=== PATIENT | male | born 1945 | race Caucasian/White ===

== ENCOUNTER 2017-05-19 14:25 | Inpatient (IN) ==
[2017-05-19] MEDS ORDERED: NORMAL SALINE 10 ML SYRINGE FLUSH IVP PRN ×2 (14:54→16:58)
[2017-05-19] MEDS ORDERED: IPRATROPIUM/ALBUTEROL SULFATE 3 ML NEB NEB ONE (14:54)
[2017-05-19 15:38] LABS: VENOUS PH 7.35 (7.32-7.42)
--- NOTE | 2017-05-19 15:41 | DI ---
XR CXR 2VW PA/LAT,05/19/2017 2:54 PM: Clinical History: Dyspnea and shortness of breath. Previous Exam: None at this facility. Findings: PA and lateral views of the chest are obtained, and demonstrate flattening of the hemidiaphragms bila terally. There is some increased density within the lung base not seen on the PA view, but demonstrat ing a positive spine sign on the lateral view. Impression: Airspace disease within the lung bases seen best on the lateral view most likely representing an marco y pneumonia. Correlate clinically. Recommend followup imaging after treatment to document resolution.
[2017-05-19 15:45] LABS: Hematocrit [HCT] 35.9 % (42.0-52.0); Hemoglobin [HGB] 11.6 g/dL (14.0-18.0); MEAN CORPUSCULAR HEMOGLOBIN 31.4 PG (27-31); MEAN CORPUSCULAR VOLUME 97 FL (80-90)
[2017-05-19 15:46] LABS: BASOPHILS % (AUTO) 0.4 % (0-1); EOSINOPHILS % (AUTO) 3.4 % (0-8); MEAN CORPUSCULAR HGB CONC 32.4 g/dL (33-37); MEAN PLATELET VOLUME 7.2 FL (7.4-12.2); MONOCYTES % (AUTO) 5.9 % (5-15); NEUTROPHILS % (AUTO) 74.2 % (50-80)
[2017-05-19 15:47] LABS: BASOPHILS # (AUTO) 0.03 10*3/UL; EOSINOPHILS # (AUTO) 0.24 10*3/UL; LYMPHOCYTES # (AUTO) 1.14 10*3/uL; MONOCYTES # (AUTO) 0.42 10*3/UL (0.3-0.8); NEUTROPHILS # (AUTO) 5.26 10*3/UL; PLATELET MORPHOLOGY COMMENT NORMAL MORPHOLOGY (NORM); RBC MORPHOLOGY COMMENT NORMAL MORPHOLOGY (NORM); WBC MORPHOLOGY COMMENT NORMAL MORPHOLOGY (NORM)
[2017-05-19 15:54] LABS: BLOOD UREA NITROGEN 15 mg/dL (7-22); BUN/CREATININE RATIO 18.75 (6-20); SERUM ALBUMIN 3.7 g/dL (3.5-4.8)
[2017-05-19] MEDS ORDERED: Ertapenem Inj 1 GM in Sodium Chloride 0.9% 100 ML IV ONE (16:31)
[2017-05-19] MEDS ORDERED: cefTRIAXone Inj 2 GM in Sodium Chloride 0.9% 100 ML IV ONE (16:39)
--- NOTE | 2017-05-19 16:45 | PDOC ---
Dyspnea HPI - General Chief Complaint: Respiratory Complaint Stated Complaint: SHORTNESS OF BREATH, CAN'T COUGH UP PHLEGM Date Seen by Provider: 05/19/17 Time Seen by Provider: 14:35 Source: POSITIVE: Patient, Other (daughter) Exam Limitations: POSITIVE: No limitations Treatment Prior to Arrival: REPORTS: Oxygen, Albuterol Neb Treatment Nurse's Notes Reviewed & Considered: No - History of Present Illness Body Location Affected: REPORTS: Chest (Dyspnea and cough) Timing: REPORTS: Gradual, Getting Worse Duration: >24 hours (2-3 days) Severity: Moderate Quality: REPORTS: Other (Patient denies any pain anywhere) Initiating Event: DENIES: Upper Respiratory Illness, Out of Medications, Sports , Exercise, Aspiration, Choking, Allergy, Exposure - Smoke, Exposure - Mold, Exposure - Other Allergen Context: REPORTS: Rest Exacerbated By: REPORTS: Coughing Associated Symptoms: REPORTS: Bloody Cough Similar Symptoms Previously: Yes Recently seen/treated/hospitalized: No Any Prior Injuries Related to Current Complaint?: No - Patient Home Medications Home Medications: Home Medications aspirin 81 mg tablet,delayed release 81 mg PO .every other day tab 05/03/17 atorvastatin 20 mg tablet 20 mg PO QDAY 05/03/17 cholecalciferol (vitamin D3) 2,000 unit capsule 2,000 unit PO ONCE 05/03/17 dextromethorphan-guaifenesin 30 mg-600 mg tablet extended [id number] hr 2 tab PO Q12H PRN 05/03/17 diphenhydramine 25 mg capsule 25 mg PO QHS PRN cap 05/03/17 ferrous sulfate 325 mg (65 mg iron) tablet 325 mg PO QDAY tab 05/03/17 furosemide 20 mg tablet 20 mg PO TID tab 05/03/17 ibuprofen 200 mg tablet 400 mg PO Q4-6H PRN 05/03/17 losartan 50 mg tablet 50 mg PO QDAY 05/03/17 montelukast 10 mg tablet 10 mg PO QHS 05/03/17 omega-3 fatty acids 180 mg-fish oil 400 mg capsule 1 cap PO BID 05/03/17 pentoxifylline ER 400 mg tablet,extended release 400 mg PO TID 05/03/17 potassium chloride ER 10 mEq tablet,extended release 20 meq PO QDAY 05/03/17 prednisone 10 mg tablet 20 mg PO BID #21 tab 05/03/17 ropinirole 5 mg tablet 0.5 mg PO QID tab 05/03/17 tamsulosin 0.4 mg capsule 0.4 mg PO QDAY 05/03/17 Albuterol Sulfate [ALBUTEROL NEB SOLN] 1.25 mg NEB .Q4-6H PRN 05/19/17 - Patient Allergies Allergies/Adverse Reactions: Allergies 3 Allergy/AdvReac Type Severity Reaction Status Date / Time adhesive Allergy RASH Verified 05/19/17 14:43 Sulfa (Sulfonamide Allergy SWELLING Verified 05/19/17 14:43 Antibiotics) MOUTH/TONGUE Past Medical History - heen HEENT History: Denies History Cardiovascular History: Hypertension, Hyperlipidemia Additional Cardiovasular History: RHEUMATIC FEVER WITH VALVE DAMAGE Respiratory History: COPD, Shortness of Breath, Pneumonia, Home Oxygen Use Gastrointestinal History: Denies History Genitourinary History: Denies History Endocrine History: Denies History Musculoskeletal History: Arthritis, Rheumatoid Arthritis, Back Pain Prosthesis or Implant: Yes (SUN/SCREWS LUMBAR BACK, LT ANKLE) Additional Musculoskeletal History: 2 NECK, 1 LUMBAR SURGERY. LT WRIST, ARM AND ANKLE SURGERY Neurological History: Other (please comment) Additional Neurological History: ESSENTIAL TREMORS Blood Disorders: Denies History Psychiatric History: Denies History Cancer History: Denies History In Past Year Been Physically Harmed or Verbally Threatened: No History of MDRO: No Tobacco Use: Former Smoker In the Past 12 Months, Have Used or Abuse Any Substance: None Previous Surgical History: Yes Type / Date of Surgery: NECK, BACK, ANKLE, WRIST, ARM Anesthesia Reactions: No Past Medical History Reviewed: Reviewed - No Changes ROS - Limitations ROS Limitations: No Limitations Constitution: REPORTS: Weakness Cardiovascular: REPORTS: Denies Cardiac Symptoms Respiratory: REPORTS: Cough Productive, Shortness Of Breath, Wheezing Neurological: REPORTS: Denies Neuro Symptoms Gastrointestinal: REPORTS: Denies GI Symptoms Endocrine: REPORTS: Denies Symptoms Musculoskeletal: REPORTS: Denies MS Symptoms Genitourinary: REPORTS: Denies Symptoms Eyes: REPORTS: Denies Symptoms ENT: REPORTS: Denies Symptoms Skin: REPORTS: Denies Skin Symptoms Lympathic: REPORTS: Denies Lympathic Symptoms Immunologic: POSITIVE: Denies Symptoms Psychiatric: POSITIVE: Denies Psych Symptoms Dyspnea Physical Exam - General Appearance General Appearance: REPORTS: Alert, Cooperative, No Acute Distress, No Evidence of Trauma - HEENT HEENT: POSITIVE: Head Inspection Nml, Eyes Inspection Nml, Ears Inspection Nml, Nose Inspection Nml, Oral/Dental Inspect. Nml, Pharynx Inspect. Nml, PERRL, EOMI - Neck Neck: REPORTS: Normal Inspection, No Carotid Bruit - Respiratory Respiratory: REPORTS: No Pleuritic Chest Pain, Speaks Full Sentences, No Pain on Inspiration, Wheezes, Rales, Rhonchi, Decreased Air Movement. DENIES: Breath Sounds Normal - Cardiovascular Cardiovascular: REPORTS: Regular Rate and Rhythm, Heart Sounds Normal, Equal Pulses, Strong Pulses, No Murmur, No Gallop, No Friction Rub, No JVD Peripheral Pulses: Radial (R): 2+, Radial (L): 2+ - Abdomen Abdomen: Soft: (All Quadrants), Normal Bowel Sounds: (All Quadrants), Denies Tenderness: (All Quadrants), No Splenomegaly: (All Quadrants), No Hepatomegaly: (All Quadrants), No Guarding: (All Quadrants), No Rebound: (All Quadrants), No Palpable Pulse: (All Quadrants), No Palpabale Mass: (All Quadrants), No Distention: (All Quadrants), No Rigidity: (All Quadrants) - Skin Skin: REPORTS: Intact, Normal For Race, Warm, Dry, No Rash - Extremities Extremity: Non-Tender: (All Extremities), Normal ROM: (All Extremities), Normal Inspection: (All Extremities) - Neurological / Psychological Neurological: POSITIVE: Affect Apporpriate, Oriented X3, pediatric clinical dietician Normal As Tested, Motor Normal, Sensation Normal Dyspnea Progress - Results Reviewed by me Xrays/CTs/US Reviewed by me: Yes Discussed with Radiologist: Yes Radiology Findings: Airspace disease both lung bases, seen best on lateral view , compatible with early pneumonia Lab Results Reviewed by Me: Yes (blood cultures drawn. BNP normal.) CBC and BMP: 05/19/17 15:38 05/19/17 15:38 - Patient's Progress Pain Medication Addressed: POSITIVE: Not Applicable School/Work Release Addressed: POSITIVE: Not Applicable Re-Examine Time: 16:20 Re-Examine Comment: 1 g Rocephin and 500 mg Zithromax IV ordered after blood cultures. Diagnosis discussed with patient and his daughter. Discussed with hospitalist, and patient is admitted for further evaluation and treatment. Patient was given a DuoNeb nebulizer treatment which she states had little effect, although wheezing and rhonchi are decreased after this treatment. Saturations remain around 93% on 5 L of supplemental oxygen. Venous blood gas shows a PCO2 of 73. Status: POSITIVE: Unchanged, Re-Examined Air Movement: POSITIVE: Fair Quality Measure Initiative: CAP: POSITIVE: SaO2, Antibiotic(s), BC, CXR or CT - Consult Consult (If Yes, Name of Consulting MD & Time Called): Yes (Dr. Roche Hospitalist, [id number]) Consulting MD will see pt:: POSITIVE: [facility] Admit Counseled: POSITIVE: Patient, Family, RE: Lab Results, RE: Radiology Results, RE : DX, RE: Need for F/U Patient Care Time - Estimated PCT Patient Care Time (In Minutes): 60 Vital Signs - Recent Vital Signs Vital Signs: Vital Signs (Last 8 hours) Temp Pulse Pulse Resp BP Pulse Ox 05/19/17 15:41 65 18 94 05/19/17 15:40 61 20 94 05/19/17 14:30 97.6 F 65 18 140/77 95 - VS Reviewed Vital Signs Reviewed: Yes Discharge Clinical Impression: Pneumonia, COPD (chronic obstructive pulmonary disease) Discharge Disposition: Admit to Inpatient Condition: Stable Follow Up With: RASHID DÍAZ [Primary Care Provider] - Date Decision to Admit to Inpatient: 05/19/17 Time Decision to Admit to Inpatient: 16:20
[2017-05-19] MEDS ORDERED: FLUTICASONE/SALMETEROL 250/50 UD INHALER INH ONE ×2 (16:51→16:58)
[2017-05-19] MEDS ORDERED: IPRATROPIUM/ALBUTEROL SULFATE 3 ML NEB NEB PRN ×3 (16:51→18:59)
[2017-05-19] MEDS ORDERED: methylPREDNISolone 125 MG/2 ML VIAL IVP ONE ×2 (16:56→16:58)
--- NOTE | 2017-05-19 16:56 | PDOC ---
HPI - History of Present Illness History of Present Illness: 0 and I said a 72-year-old gentleman with history of COPD/emphysema on chronic oxygen at home started feeling more short of breath last night and increased cough his grandson checked his oxygen which was about 88% and decided to be evaluated in the ER where he was found to have CO2 retention and lower lobe pneumonia on x-ray. Patient is comfortable. At present I explained him he should be be common in the hospital for a few days to treat this pneumonia he agrees and orders will be written Past Medical History Medical History: COPD, low iron, hypercholesterolemia Tobacco Use: Former Smoker In the Past 12 Months, Have Used or Abuse Any of the Following Substance: None Medication / Allergies Home Medications: Home Medications Medication Instructions Recorded Confirmed Type aspirin 81 mg tablet,delayed 81 mg PO .every other day tab 05/03/17 05/19/17 History release atorvastatin 20 mg tablet 20 mg PO QDAY 05/03/17 05/19/17 History cholecalciferol (vitamin D3) 2,000 2,000 unit PO ONCE 05/03/17 05/19/17 History unit capsule dextromethorphan-guaifenesin 30 2 tab PO Q12H PRN 05/03/17 05/19/17 History mg-600 mg tablet extended hr diphenhydramine 25 mg capsule 25 mg PO QHS PRN cap 05/03/17 05/19/17 History ferrous sulfate 325 mg (65 mg 325 mg PO QDAY tab 05/03/17 05/19/17 History iron) tablet furosemide 20 mg tablet 20 mg PO TID tab 05/03/17 05/19/17 History ibuprofen 200 mg tablet 400 mg PO Q4-6H PRN 05/03/17 05/19/17 History losartan 50 mg tablet 50 mg PO QDAY 05/03/17 05/19/17 History montelukast 10 mg tablet 10 mg PO QHS 05/03/17 05/19/17 History omega-3 fatty acids 180 mg-fish 1 cap PO BID 05/03/17 05/19/17 History oil 400 mg capsule pentoxifylline ER 400 mg 400 mg PO TID 05/03/17 05/19/17 History tablet,extended release potassium chloride ER 10 mEq 20 meq PO QDAY 05/03/17 05/19/17 History tablet,extended release prednisone 10 mg tablet 20 mg PO BID #21 tab 05/03/17 05/19/17 Rx ropinirole 5 mg tablet 0.5 mg PO QID tab 05/03/17 05/19/17 History tamsulosin 0.4 mg capsule 0.4 mg PO QDAY 05/03/17 05/19/17 History Albuterol Sulfate [ALBUTEROL NEB 1.25 mg NEB .Q4-6H PRN 05/19/17 05/19/17 History SOLN] Allergies/Adverse Reactions: Allergies 3 Allergy/AdvReac Type Severity Reaction Status Date / Time adhesive Allergy RASH Verified 05/19/17 14:43 Sulfa (Sulfonamide Allergy SWELLING Verified 05/19/17 14:43 Antibiotics) MOUTH/TONGUE Review of Systems - Respiratory Respiratory: REPORTS: Cough, Dyspnea with Exertion - Cardiovascular Cardiovascular: DENIES: Negative System Review, Chest Pain, Edema, Syncope, Palpitations, Orthopnea, Paroxysmal Nocturnal Dyspnea, Other, See HPI - Gastrointestinal Gastrointestinal / Abdominal: DENIES: Negative System Review, Nausea, Vomiting, Diarrhea, Constipation, Abdominal Pain, Bloody Stool, Poor Appetite, Heartburn, Regurgitation, Bloating, Lactose Intolerance, Melena, Bright Red Blood per Rectum, Other, See HPI - Genitourinary Genitourinary: DENIES: Negative System Review, Pain, Burning, Hematuria, Incontinence, Urgency, Hesitant Stream, Decreased Stream, Nocutria, Discharge, Sexual Dysfunction, Other, See HPI - Neurological Neurologic: DENIES: Negative System Review, Headache, Numbness/Paresthesia, Tremors, Weakness, Seizures, Head Trauma, LOC, Dizziness, Confusion, Memory Loss , Difficulty Walking, Incoordination, Other, See HPI Exam - Vitals Vital Signs: Vital Signs Temperature 97.6 F Temperature Source Temporal Artery Scan Pulse Rate [Pulse Oximeter] 65 Pulse Rate 65 Respiratory Rate 18 Blood Pressure [Left Arm] 140/77 Pulse Ox 94 Oxygen Flow Rate 5 Oxygen Delivery Method Nasal Cannula Height 5 ft 7 in Weight 250 lb - General General Appearance: No Acute Distress - Head Head Exam: Normal Inspection, Normocephalic, Atraumatic - Eye Eye Exam: POSITIVE: Normal Appearance, PERRL, EOMI, No Scleral Icterus - Neck Neck Exam: Normal Inspection, Full ROM, No Tenderness, No Lymphadenopathy, No Thyromegaly, JVP is not Raised - Respiratory Respiratory Exam: POSITIVE: Clear to Auscultation - Bilaterally, Breathing Non Labored, Normal To Percussion, Normal to Percussion and Palpation, Decreased Breath Sounds - Cardiovascular Cardiovascular Exam: POSITIVE: RRR, No Murmur, No Clicks, No Gallops, No Rubs, PMI Non-Displaced - GI/Abdominal GI/Abdominal Exam: POSITIVE: Normal Bowel Sounds, Non Tender, Non Distended, Soft, No Masses, No Hepatomegaly, No Splenomegaly, No Organomegaly - Extremities Extremities Exam: POSITIVE: Normal Inspection, Full ROM, Normal Capillary Refill , No Clubbing Present, No Edema Present, No Cyanosis Present, Negative Luzma's sign, Dosalis Pedis Pulses - Stong & Regular - Neurological Neurological Exam: POSITIVE: Alert, Oriented x 3, Reflexes Normal, Normal Gait, CN II-XII Intact, No Facial Droop, Speech Intact / Clear, Moves All Extremities Equally, No Fasciculations, No Clonus - Psychiatric Psychiatric Exam: POSITIVE: Normal Affect, Normal Mood Results - Labs CBC and BMP: 05/19/17 15:38 05/19/17 15:38 Assessment and Plan - Patient Problems (1) Pneumonia Current Visit: Yes Status: Acute Comment: Start IV ceftriaxone and Zithromax check blood cultures Code(s): J18.9 - Pneumonia, unspecified organism (2) COPD (chronic obstructive pulmonary disease) Current Visit: Yes Status: Chronic Comment: I will start steroids most likely his pH is normal this is where he lives I will not start BiPAP patient is not confused and is not acidotic recheck a VBG in a.m. Code(s): J44.9 - Chronic obstructive pulmonary disease, unspecified (3) HTN (hypertension) Current Visit: No Status: Chronic Comment: Continue current medication Code(s): I10 - Essential (primary) hypertension
[2017-05-19] MEDS ORDERED: GUAIFENESIN PO PRN (16:58)
[2017-05-19] MEDS ORDERED: LIDOCAINE W/ SODIUM BICARB 0.5 ML SYR SUBD PRN (16:58)
[2017-05-19] MEDS ORDERED: DEXTROMETHORPHAN PO PRN (16:58)
[2017-05-19] MEDS ORDERED: ALBUTEROL SULFATE 2.5 MG/3 ML NEB PRN (17:00)
[2017-05-19] MEDS ORDERED: cefTRIAXone Inj 2 GM in Sodium Chloride 0.9% 100 ML IV SCH (17:00)
[2017-05-19] MEDS ORDERED: methylPREDNISolone 40 MG/1 ML VIAL IVP SCH (17:00)
[2017-05-19] MEDS ORDERED: CHOLECALCIFEROL 1000 IU TABLET PO ONE (17:30)
[2017-05-19] MEDS: FLUTICASONE/SALMETEROL 250/50 UD INHALER INH SCH (19:15)
[2017-05-19] MEDS: FUROSEMIDE 20 MG TABLET PO SCH (20:20)
[2017-05-19] MEDS: Ropinirole Tab 0.25 MG TAB PO SCH ×2 (20:20→21:45)
[2017-05-19] MEDS: LOSARTAN 50 MG TABLET PO SCH ×2 (20:20→20:25)
[2017-05-19] MEDS: GABAPENTIN 100 MG CAPSULE PO SCH ×2 (20:21→20:30)
[2017-05-19] MEDS: Potassium Chloride Tab 10 MEQ TAB PO SCH (20:21)
[2017-05-19] MEDS: ASPIRIN EC 81 MG TABLET PO SCH (20:21)
[2017-05-19] MEDS: predniSONE Tab 10 MG TAB PO SCH (20:21)
[2017-05-19] MEDS: TAMSULOSIN 0.4 MG CAPSULE PO SCH ×2 (20:21→20:25)
[2017-05-19] MEDS ORDERED: GABAPENTIN 100 MG CAPSULE PO ONE (20:21)
[2017-05-19] MEDS: methylPREDNISolone 40 MG/1 ML VIAL IVP SCH (23:35)
[2017-05-20] MEDS: Ropinirole Tab 0.25 MG TAB PO SCH ×5 (00:16→20:13)
[2017-05-20] MEDS: GABAPENTIN 100 MG CAPSULE PO SCH ×5 (02:11→20:13)
[2017-05-20] MEDS: methylPREDNISolone 40 MG/1 ML VIAL IVP SCH ×2 (06:09→12:59)
[2017-05-20] MEDS: ALBUTEROL SULFATE 2.5 MG/3 ML NEB PRN ×2 (06:27→15:28)
[2017-05-20] MEDS: FLUTICASONE/SALMETEROL 250/50 UD INHALER INH SCH (06:29)
[2017-05-20] MEDS: TIOTROPIUM BROMIDE 18 MCG CAPSULE INH SCH (06:30)
[2017-05-20 06:40] LABS: BLOOD UREA NITROGEN 17 mg/dL (7-22); BUN/CREATININE RATIO 24.28 (6-20)
[2017-05-20 07:13] LABS: BAND NEUTROPHILS % 3 % (0-10); Hemoglobin [HGB] 11.4 g/dL (14.0-18.0); MEAN CORPUSCULAR HEMOGLOBIN 31.5 PG (27-31); MEAN CORPUSCULAR HGB CONC 32.7 g/dL (33-37); MEAN CORPUSCULAR VOLUME 96 FL (80-90); MEAN PLATELET VOLUME 7.7 FL (7.4-12.2); NEUTROPHILS % (MANUAL) 88 % (50-80); RED BLOOD COUNT 3.62 10^6/uL (4.70-6.10)
[2017-05-20 07:14] LABS: BASOPHILS % (MANUAL) 1 % (0-1); EOSINOPHILS % (MANUAL) 1 % (0-8); MONOCYTES % (MANUAL) 0 % (0-12); PLATELET MORPHOLOGY COMMENT NORMAL MORPHOLOGY (NORM); RBC MORPHOLOGY COMMENT NORMAL MORPHOLOGY (NORM); WBC MORPHOLOGY COMMENT SEE COMMENTS (NORM)
[2017-05-20] MEDS: FUROSEMIDE 20 MG TABLET PO SCH ×3 (08:48→20:13)
[2017-05-20] MEDS: CHOLECALCIFEROL 1000 IU TABLET PO SCH (08:48)
[2017-05-20] MEDS: Potassium Chloride Tab 10 MEQ TAB PO SCH (08:57)
[2017-05-20] MEDS: predniSONE Tab 10 MG TAB PO SCH (08:58)
[2017-05-20] MEDS ORDERED: GABAPENTIN 300 MG CAPSULE PO ONE (09:04)
[2017-05-20] MEDS: NORMAL SALINE 10 ML SYRINGE FLUSH IVP PRN (13:01)
[2017-05-20] MEDS: SODIUM CHLORIDE 0.9% IV SCH (16:15)
[2017-05-20] MEDS: CEFTRIAXONE IV SCH (16:15)
[2017-05-20] MEDS ORDERED: ARFORMOTEROL NEB SOLN 15 MCG/2 ML NEB ONE (16:31)
[2017-05-20] MEDS: LOSARTAN 50 MG TABLET PO SCH (17:02)
[2017-05-20] MEDS: TAMSULOSIN 0.4 MG CAPSULE PO SCH (17:03)
[2017-05-20] MEDS: predniSONE Tab 20 MG TAB PO SCH (20:13)
[2017-05-20] MEDS ORDERED: GABAPENTIN 100 MG CAPSULE PO ONE (21:44)
--- NOTE | 2017-05-20 23:53 | PDOC(PROG) ---
Date and Time of Service: 05/20/2017, 1600 Interval History: not feeling much better, SOB about the same, cough is chronic, but seems to be more productive. has lots of tingling in lower extremities, presumably neuropathy, but has had chronic edema as well. diagnosed with restless leg syndrome, but B12 status, iron status not known. based on COPD assessment, he is group D and might benefit from LABA and LAMA therapy, possibly eliminating inhaled steroids. has a carpet installer helper in [place], but recently moved here so daughter could take care of patient and his . he reports poor sleep. Objective : Data - Labs CBC and BMP: 05/20/17 05:28 05/20/17 05:28 Additional Lab Results: 05/19/17 05/20/17 15:35 05:28 Neutrophils % (Manual) 88 H Band Neutrophils % 3 VBG pH 7.35 VBG pCO2 73 H VBG HCO3 40 H VBG Base Excess 14 H Objective : Exam - General General Appearance: No Acute Distress, Cooperative Additional General Exam Details: Vital Signs (24 hrs) Temp Pulse Pulse Resp BP Pulse Ox 05/20/17 21:00 98.2 F 62 22 121/53 92 05/20/17 19:00 62 22 91 05/20/17 17:36 87 22 05/20/17 17:35 87 22 91 05/20/17 16:45 97.9 F 65 20 108/62 95 05/20/17 15:29 78 20 92 05/20/17 15:28 78 20 92 05/20/17 15:02 55 L 98 05/20/17 13:00 98.2 F 71 22 145/58 92 05/20/17 11:01 72 92 05/20/17 09:04 20 05/20/17 09:00 97.6 F 83 20 122/44 92 05/20/17 07:00 65 89 05/20/17 06:28 60 22 93 05/20/17 06:27 58 L 22 93 05/20/17 05:00 97.5 F 63 20 151/60 93 05/20/17 03:29 67 05/20/17 02:42 92 05/20/17 02:00 94 05/20/17 00:31 99.2 F 62 20 135/67 93 - Eye Eye Exam: No Scleral Icterus - ENT ENT Exam: Mucous Membranes Moist - Respiratory Respiratory Exam: Breathing Non Labored, Decreased Breath Sounds, Coarse Breath Sounds - Cardiovascular Cardiovascular Exam: RRR, No Murmur, No Clicks, No Gallops, No Rubs, No JVD - GI/Abdominal GI/Abdominal Exam: Normal Bowel Sounds, Non Tender, Non Distended, Soft Additional GI/Abdominal Exam Details: obese - Extremities Extremities Exam: No Cyanosis Present, +2 Edema - Neurological Neurological Exam: Alert, Oriented x 3, No Facial Droop, Speech Intact / Clear, Moves All Extremities Equally Assessment and Plan - Patient Problems (1) Pneumonia Current Visit: Yes Status: Acute Code(s): J18.9 - Pneumonia, unspecified organism (2) COPD (chronic obstructive pulmonary disease) Current Visit: Yes Status: Chronic Code(s): J44.9 - Chronic obstructive pulmonary disease, unspecified Qualifiers: COPD type: COPD with acute exacerbation Qualified Code(s): J44.1 - Chronic obstructive pulmonary disease with (acute) exacerbation (3) HTN (hypertension) Current Visit: Yes Status: Chronic Code(s): I10 - Essential (primary) hypertension Qualifiers: Hypertension type: essential hypertension Qualified Code(s): I10 - Essential (primary) hypertension (4) Numbness and tingling of both legs Current Visit: Yes Status: Chronic Code(s): R20.0 - Anesthesia of skin; R20.2 - Paresthesia of skin (5) Restless leg Current Visit: Yes Status: Chronic Code(s): G25.81 - Restless legs syndrome (6) Chronic hypercapnic respiratory failure Current Visit: Yes Status: Chronic Code(s): J96.12 - Chronic respiratory failure with hypercapnia (7) PRATIBHA and COPD overlap syndrome Current Visit: Yes Status: Chronic Code(s): G47.33 - Obstructive sleep apnea (adult) (pediatric); J44.9 - Chronic obstructive pulmonary disease, unspecified - Assessment / Plan Additional Assessment/Plan Details: this is a very tough situation. Overall, the patient has had multiple COPD exacerbations this past 12 months requiring antibiotics, as well as two hospitalizations in the past 6 months. He may be at additional risk for pneumonia on inhaled steroids (newer research indicates this can be the case) and may benefit from daily zithromax to help prevent acute exacerbations of COPD I looked at CXR. there does appear to be a basilar pneumonia, but not overwhelming infiltrate. may consider CT of lungs. would really like to decrease neurontin check vitamin B12, folate, and iron levels. anemic and on PO iron, so I suspect his levels could be low (all potential reversible causes of RLS) his PRATIBHA device with serviced by [place] today, continue. given CO2 at 70's, likely baseline, worsened COPD, recurrent exacerbations, intermediate prognosis is poor regardless of what we can offer. quitting smoking 2 months ago and oxygen are best therapies overall. stop inhaled steroids for now (resume only if symptoms are worse) discussed in depth with the patient, his , and daughter.
[2017-05-21] MEDS: ARFORMOTEROL NEB SOLN 15 MCG/2 ML NEB SCH ×2 (06:24→19:00)
[2017-05-21] MEDS: ALBUTEROL SULFATE 2.5 MG/3 ML NEB PRN ×4 (06:25→22:46)
[2017-05-21] MEDS: TIOTROPIUM BROMIDE 18 MCG CAPSULE INH SCH (06:26)
[2017-05-21 06:53] LABS: BLOOD UREA NITROGEN 24 mg/dL (7-22)
[2017-05-21 07:09] LABS: VITAMIN D 25-HYDROXY 34.5 NG/ML (30-100)
[2017-05-21 07:11] LABS: Hemoglobin [HGB] 11.4 g/dL (14.0-18.0); MEAN CORPUSCULAR HEMOGLOBIN 31.4 PG (27-31); MEAN CORPUSCULAR VOLUME 96 FL (80-90); RED BLOOD COUNT 3.64 10^6/uL (4.70-6.10)
[2017-05-21 07:12] LABS: BAND NEUTROPHILS % 0 % (0-10); BASOPHILS % (MANUAL) 0 % (0-1); EOSINOPHILS % (MANUAL) 0 % (0-8); MEAN CORPUSCULAR HGB CONC 32.6 g/dL (33-37); MEAN PLATELET VOLUME 8.2 FL (7.4-12.2); MONOCYTES % (MANUAL) 3 % (0-12); NEUTROPHILS % (MANUAL) 84 % (50-80); PLATELET MORPHOLOGY COMMENT NORMAL MORPHOLOGY (NORM); RBC MORPHOLOGY COMMENT NORMAL MORPHOLOGY (NORM); WBC MORPHOLOGY COMMENT NORMAL MORPHOLOGY (NORM)
[2017-05-21] MEDS: OMEPRAZOLE 40 MG CAPSULE PO SCH (07:40)
[2017-05-21] MEDS ORDERED: predniSONE Tab 20 MG TAB PO SCH ×4 (09:00→21:00)
[2017-05-21] MEDS ORDERED: GABAPENTIN 400 MG CAPSULE PO SCH (09:00)
[2017-05-21] MEDS: predniSONE Tab 20 MG TAB PO SCH (09:05)
[2017-05-21] MEDS: CHOLECALCIFEROL 1000 IU TABLET PO SCH (09:06)
[2017-05-21] MEDS: Ropinirole Tab 0.25 MG TAB PO SCH ×4 (09:06→21:51)
[2017-05-21] MEDS: FUROSEMIDE 20 MG TABLET PO SCH ×3 (09:06→22:00)
[2017-05-21] MEDS: GABAPENTIN 300 MG CAPSULE PO SCH ×4 (09:06→21:51)
[2017-05-21] MEDS: Potassium Chloride Tab 10 MEQ TAB PO SCH (09:06)
[2017-05-21] MEDS: AZITHROMYCIN 250 MG TABLET PO SCH (09:06)
--- NOTE | 2017-05-21 11:39 | DI ---
CT CTA Chest Non-Coronary WWO,05/21/2017 9:58 AM: Clinical History: Shortness of breath, COPD and question of pulmonary embolism. Previous Exam: None at this facility. Findings: Multiple helically acquired CT images are obtained through the chest following a CT angiogram contras t. There is diffuse COPD. There is subsegmental atelectasis in the lung bases. There are no nodules identified. Coronary artery calcifications are seen. Mild degenerative changes of the thoracic and visualized portions of the cervical spine are seen. Impression: 1. Diffuse COPD. 2. Subsegmental atelectasis in the lung bases.
[2017-05-21] MEDS: NORMAL SALINE 10 ML SYRINGE FLUSH IVP PRN (16:00)
[2017-05-21] MEDS: SODIUM CHLORIDE 0.9% IV SCH (16:00)
[2017-05-21] MEDS: CEFTRIAXONE IV SCH (16:00)
[2017-05-21] MEDS ORDERED: Lidocaine 1% 10 MG/ML - 20 ML VIAL IM ONE (16:15)
[2017-05-21] MEDS ORDERED: BETAMET ACET/BETAMET NA PH 6 MG/1 ML - 5 ML IM ONE (16:15)
[2017-05-21] MEDS: TAMSULOSIN 0.4 MG CAPSULE PO SCH (17:13)
[2017-05-21] MEDS: ASPIRIN EC 81 MG TABLET PO SCH (17:14)
[2017-05-21] MEDS: LOSARTAN 50 MG TABLET PO SCH (17:14)
--- NOTE | 2017-05-21 18:03 | PROCEDURE1 ---
Procedure - - Procedure Performed: Arthrocentesis : Intermediate Joint without US Guidance Procedure Note: Procedure Performed: Therapeutic Arthrocentesis, Knee Date Procedure Performed: 05/21/2017 Indications for Procedure: 1. osteoarthritis left knee 2. effusion not present Risks and Benefits: Risks described as bleeding, infection, or skin necrosis, and benefits as pain relief, the patient consented to have the knee aspiration done. Anesthesia: Local, 2% ropivacaine, 2 mL Description of Procedure: Patient was prepped and draped in usual fashion. Using a lateral approach, a 1- 1/2 inch 23-gauge needle attached to a 10 mL syringe was inserted into the left knee joint, containing 2 mL of 1% lidocaine and 1 mL of 6 mg Celestone per mL. This solution was injected into the knee joint. The needle was withdrawn the area was cleansed. Hemostasis was achieved. A Band-Aid was applied. After the procedure is done, the patient reported improvement in his pain. Disposition: patient remains in the hospital
[2017-05-21] MEDS ORDERED: diphenhydrAMINE 25 MG CAPSULE PO ONE (20:46)
[2017-05-21] MEDS ORDERED: ACETAMINOPHEN 325 MG TABLET PO ONE (20:46)
--- NOTE | 2017-05-21 20:54 | PDOC(PROG) ---
Date and Time of Service: 05/21/2017 Interval History: no chest pain, no nausea or vomiting, feeling better. complains of bilateral knee pain and left worse than right. chronic. Objective : Data - Labs CBC and BMP: 05/21/17 06:32 05/21/17 06:32 Objective : Exam - General General Appearance: No Acute Distress, Cooperative Additional General Exam Details: Vital Signs (24 hrs) Temp Pulse Pulse Pulse Resp BP Pulse Ox 05/21/17 19:00 68 66 60 20 90 05/21/17 16:23 97.4 F 60 22 134/55 93 05/21/17 14:39 66 20 93 05/21/17 14:38 66 20 93 05/21/17 12:31 96.9 F 70 20 137/57 88 05/21/17 10:53 61 20 93 05/21/17 10:52 61 20 93 05/21/17 08:23 97.0 F 54 L 16 133/73 96 05/21/17 07:00 66 21 05/21/17 06:26 60 20 05/21/17 06:25 60 20 92 05/21/17 06:24 60 20 92 05/21/17 05:09 93 05/21/17 04:53 97.2 F 50 L 22 138/61 94 05/21/17 00:14 97.0 F 60 22 112/55 94 05/20/17 21:00 98.2 F 62 22 121/53 92 - Eye Eye Exam: No Scleral Icterus - ENT ENT Exam: Mucous Membranes Moist - Respiratory Respiratory Exam: Breathing Non Labored, Decreased Breath Sounds, Wheezes, Coarse Breath Sounds - Cardiovascular Cardiovascular Exam: RRR, No Murmur, No Clicks, No Gallops, No Rubs, No JVD - GI/Abdominal GI/Abdominal Exam: Normal Bowel Sounds, Non Tender, Non Distended, Soft - Extremities Extremities Exam: No Clubbing Present, No Cyanosis Present, +1 Edema - Neurological Neurological Exam: Alert, Oriented x 3, Reflexes Normal, No Facial Droop, Speech Intact / Clear, Moves All Extremities Equally Assessment and Plan - Patient Problems (1) Pneumonia Current Visit: Yes Status: Acute Code(s): J18.9 - Pneumonia, unspecified organism (2) COPD (chronic obstructive pulmonary disease) Current Visit: Yes Status: Chronic Code(s): J44.9 - Chronic obstructive pulmonary disease, unspecified Qualifiers: COPD type: COPD with acute exacerbation Qualified Code(s): J44.1 - Chronic obstructive pulmonary disease with (acute) exacerbation (3) HTN (hypertension) Current Visit: Yes Status: Chronic Code(s): I10 - Essential (primary) hypertension Qualifiers: Hypertension type: essential hypertension Qualified Code(s): I10 - Essential (primary) hypertension (4) Numbness and tingling of both legs Current Visit: Yes Status: Chronic Code(s): R20.0 - Anesthesia of skin; R20.2 - Paresthesia of skin (5) Restless leg Current Visit: Yes Status: Chronic Code(s): G25.81 - Restless legs syndrome (6) Chronic hypercapnic respiratory failure Current Visit: Yes Status: Chronic Code(s): J96.12 - Chronic respiratory failure with hypercapnia (7) PRATIBHA and COPD overlap syndrome Current Visit: Yes Status: Chronic Code(s): G47.33 - Obstructive sleep apnea (adult) (pediatric); J44.9 - Chronic obstructive pulmonary disease, unspecified (8) Bilateral primary osteoarthritis of knee Current Visit: Yes Status: Acute Code(s): M17.0 - Bilateral primary osteoarthritis of knee - Assessment / Plan Additional Assessment/Plan Details: knee injection today as noted previously for left knee. Patient had immediate relief of pain. may take steroid some time to set in no evidence of pneumonia on CT scan. I viewed the CT scan, diffuse emphysema. continue antibiotics and taper steroids quickly if looks okay tomorrow no worsening of his hypoxia or respiratory effort, probably discharge home on LAMA and LABA with consideration for daily zithromax to prevent infections in the future. may benefit from ortho follow up, but not a candidate for knee replacement.
[2017-05-22] MEDS: ARFORMOTEROL NEB SOLN 15 MCG/2 ML NEB SCH (06:22)
[2017-05-22] MEDS: ALBUTEROL SULFATE 2.5 MG/3 ML NEB PRN ×3 (06:23→14:35)
[2017-05-22] MEDS: TIOTROPIUM BROMIDE 18 MCG CAPSULE INH SCH (06:24)
[2017-05-22] MEDS: OMEPRAZOLE 40 MG CAPSULE PO SCH (08:02)
[2017-05-22] MEDS: AZITHROMYCIN 250 MG TABLET PO SCH (08:07)
[2017-05-22] MEDS: GABAPENTIN 300 MG CAPSULE PO SCH ×2 (08:08→13:42)
[2017-05-22] MEDS: FUROSEMIDE 20 MG TABLET PO SCH ×2 (08:08→16:04)
[2017-05-22] MEDS: Ropinirole Tab 0.25 MG TAB PO SCH ×2 (08:08→13:42)
[2017-05-22] MEDS: CHOLECALCIFEROL 1000 IU TABLET PO SCH (08:08)
[2017-05-22 11:56] VITALS: BP 119/60; TEMP 97.1
[2017-05-22] MEDS ORDERED: BETAMET ACET/BETAMET NA PH 6 MG/1 ML - 5 ML IM ONE (12:32)
[2017-05-22] MEDS ORDERED: Lidocaine 1% 10 MG/ML - 20 ML VIAL INTRADERM ONE (12:33)
[2017-05-22 14:36] VITALS: RESP 20; O2SAT 94
--- NOTE | 2017-05-22 18:14 | DCSUMMARY ---
Hospitalization Summary Admit Date: 05/19/2017 Discharge Date: 05/22/17 Primary Diagnosis:: pneumonia, community-acquired Secondary Diagnosis:: COPD exacerbation Hospital Course: This is a very pleasant 72-year-old male that was admitted with increased cough and phlegm production and found to have what appeared to be pneumonia on chest x -ray. He is treated with antibiotics and steroids. CT scan later showed severe emphysema with no infiltrate. It was negative for pulmonary emboli. We did take the patient to several medication changes as he was on high doses of several medicines for restless leg syndrome, several inhalers including inhaled corticosteroids, but he is a end-stage, group D COPD patient, and he may do well on a LAMA and LABA combination. At the time of discharge, unfortunately we found that these medications are significantly pricey on his Medicare and we will have to try to do some prior authorizations on Wednesday. However in terms of the course of his and the pneumonia versus COPD exacerbation versus both, he did seem to improve with Rocephin and Zithromax, oxygen, and breathing therapies. He effervesced, and has been afebrile for over 48 hours and we placed him on Ceftin and Zithromax for a total of 7 days of antibiotic therapy. He has bad knee osteoarthritis, and we tried an injection of steroid in each knee while he was here and that seemed to really help his knee pain. We adjusted his Lasix and losartan therapy and that really helped with his edema in his lower extremities. We had physical therapy work with the patient which she really enjoyed and he wants to continue that as an outpatient for strengthening, conditioning, and I will also have them do Unna boots for peripheral edema. The patient has numbness and tingling in his lower extremities, and he's been told that it is restless leg syndrome. A vitamin B12 level was low normal and the low to mid 500 range, TSH was normal. Iron level was normal. But he is on high-dose Neurontin and Requip for this. I think these medications are causing significant side effects as the family and the patient told me that he is quite sedated or tired through the day has fatigue, no energy, gets quite anxious, has tremor, and significant sleep disorders. He does have obstructive sleep apnea and this is treated with pressure therapy. Given all this, I recommended discontinuing Neurontin but that did not go over as well as I hoped. I also recommended cutting back on the Requip dose which we'll do as an outpatient. He is dosed at 5 mg 4 times daily outside the hospital. We will reduce this to 1 tablet at night and then try to get it to 2 mg when his current supply is completed. The patient is only recently moved here. He's had 2 exacerbations or more in the last 12 calendar months in terms of his COPD, and if he has another exacerbation, I really think he would benefit from daily Zithromax for prevention of COPD exacerbation. I think his overall long-term prognosis is quite poor and I told the family this as I think his COPD is end-stage. No complaints of chest pain today. Shortness of breath is about at baseline. He is down to his baseline oxygen of 4 L per nasal cannula. No nausea or vomiting. His knees feel significantly better after the injections. As a side note, we did do a knee injection today. Procedure Performed: Therapeutic Arthrocentesis, Knee Date Procedure Performed: 05/22/2017] Indications for Procedure: 1. osteoarthritis , right-sided 2. effusion not present Risks and Benefits: Risks described as bleeding, infection, or skin necrosis, and benefits as pain relief, the patient consented to have the knee aspiration done. Anesthesia: Local, 2% lidocaine, 5 mL Description of Procedure: Patient was prepped and draped in usual fashion. Using a lateral approach, a 1- 1/2 inch 21-gauge needle attached to a 10 mL syringe was inserted into the right knee joint, containing 5 mL of lidocaine and 1 mL of 6 mg Celestone per mL. This solution was injected into the knee joint. The needle was withdrawn Band-Aid was applied. Hemostasis was achieved. After the procedure is done, the patient reported improvement in his pain. Disposition: Patient is discharged home. Assessment and Plan: 1. As per discharge assessments noted 2. Disposition: Patient is discharged home 3. Condition on discharge, stable and improved. 4. Diet: regular diet 5. Activities: resume normal activities 6. Follow-Up: 1. Dr. Brown, 05/25/2017 2. 7. Medications at the Time of Discharge: Home Medications Medication Instructions Recorded Confirmed Type aspirin 81 mg tablet,delayed 81 mg PO .every other day tab 05/03/17 05/19/17 History release losartan 50 mg tablet 50 mg PO QDAY 05/03/17 05/19/17 History tamsulosin 0.4 mg capsule 0.4 mg PO QDAY 05/03/17 05/19/17 History Albuterol Sulfate [ALBUTEROL NEB 1.25 mg NEB .Q4-6H PRN 05/19/17 05/19/17 History SOLN] Omeprazole 40 mg PO DAILY 05/19/17 05/19/17 History Arformoterol Neb Soln [Brovana Neb 15 mcg NEB RTBID #1 vial.neb 05/22/17 Rx Soln] Azithromycin [Zithromax] 500 mg PO DAILY #4 tab 05/22/17 Rx Cefuroxime Axetil [Ceftin] 500 mg PO BID #8 tab 05/22/17 Rx Cholecalciferol (Vitamin D3) 1,000 unit PO DAILY #30 05/22/17 05/19/17 Rx [D3-2000] Furosemide 20 mg PO BID #90 tab 05/22/17 Rx Gabapentin 600 mg PO QID #30 05/22/17 05/19/17 Rx Potassium Chloride [K-Tab ER] 20 meq PO DAILY #30 05/22/17 05/19/17 Rx Ropinirole HCl [Requip] 2 mg PO QPM #30 tab 05/22/17 Rx Umeclidinium [place] [Incruse 62.5 mcg IH DAILY #1 blst.w.dev 05/22/17 Rx Ellipta] Please note that we will have to do some prior AUTHORIZATION work with the pharmacy and the Medicare drug Ensure to figure out how we can get provide Spiriva. Compensated are covered 8. Time, care, counseling and coordination of care for this discharge is greater than 30 minutes. Exam - Vitals Vital Signs: Vital Signs Temperature 97.1 F Temperature Source Temporal Artery Scan Pulse Rate [Apical] 66 Pulse Rate [Pulse Oximeter] 68 Pulse Rate 64 Respiratory Rate 20 Blood Pressure [Left Arm] 119/60 Blood Pressure 140/77 Pulse Ox 94 Oxygen Flow Rate 5 Oxygen Delivery Method Nasal Cannula Height 5 ft 7 in Weight 253 lb - General General Appearance: No Acute Distress, Cooperative, Obese - Eye Eye Exam: POSITIVE: No Scleral Icterus - ENT ENT Exam: POSITIVE: Mucous Membranes Moist - Respiratory Respiratory Exam: POSITIVE: Breathing Non Labored, Coarse Breath Sounds - Cardiovascular Cardiovascular Exam: POSITIVE: RRR, No Murmur, No Clicks, No Gallops, No Rubs, No JVD - GI/Abdominal GI/Abdominal Exam: POSITIVE: Normal Bowel Sounds, Non Tender, Non Distended, Soft - Extremities Extremities Exam: POSITIVE: No Cyanosis Present, +1 Edema (Improved) - Neurological Neurological Exam: POSITIVE: Alert, Oriented x 3, No Facial Droop, Speech Intact / Clear - Psychiatric Psychiatric Exam: POSITIVE: Normal Affect, Normal Mood Data Peritnent Studies: 05/21/17 05/21/17 05/21/17 06:32 06:32 06:32 WBC 15.3 H Hgb 11.4 L Hct 35.0 L Plt Count 209 Neutrophils % (Manual) 84 H Band Neutrophils % 0 Lymphocytes % (Manual) 13 Monocytes % (Manual) 3 Eosinophils % (Manual) 0 Basophils % (Manual) 0 Retic Count 87.0 H Percent Retic 2.34 Sodium 137 Potassium 5.3 H Chloride 100 Carbon Dioxide 28 Anion Gap 9 BUN 24 H Creatinine 0.6 L Glucose 112 H Calcium 9.7 Magnesium 2.0 Iron TIBC % Saturation Vitamin B12 558 Vitamin D 25-Hydroxy 34.5 Serum Folate 13.6 05/21/17 06:32 WBC Hgb Hct Plt Count Neutrophils % (Manual) Band Neutrophils % Lymphocytes % (Manual) Monocytes % (Manual) Eosinophils % (Manual) Basophils % (Manual) Retic Count Percent Retic Sodium Potassium Chloride Carbon Dioxide Anion Gap BUN Creatinine Glucose Calcium Magnesium Iron 57 TIBC 315 % Saturation 18.09 Vitamin B12 Vitamin D 25-Hydroxy Serum Folate [address] [facility]. [facility] [place] [address] PH: DD: [phone] FAX: [phone] ~DIAGNOSTIC IMAGING REPORT~ Patient: Jose Vicente : 1945 Sex: M Age: 72 Exam Name: CT CTA Chest Non-Coronary [facility] Exam Date: 05/21/17 Report # : [id number] CPT Code: 24067 EMR/MR #: [id number] Ordering: BRONWYN HAWLEY Admiting: KONRAD STEINER MD. Primary: Eden Brown MD Attending: KONRAD STEINER MD. Signed CT CTA Chest Non-Coronary [facility],05/21/2017 9:58 AM: Clinical History: Shortness of breath, COPD and question of pulmonary embolism. Previous Exam: None at this facility. Findings: Multiple helically acquired CT images are obtained through the chest following a CT angiogram contrast. There is diffuse COPD. There is subsegmental atelectasis in the lung bases. There are no nodules identified. Coronary artery calcifications are seen. Mild degenerative changes of the thoracic and visualized portions of the cervical spine are seen. Impression: 1. Diffuse COPD. 2. Subsegmental atelectasis in the lung bases. Dictated By: 05/21/17 1120 ALDA ARANA MD. Signed By: 05/21/17 1136 ALDA ARANA MD. [address] [facility] [place] [address] PH: DD: [phone] FAX: [phone] ~DIAGNOSTIC IMAGING REPORT~ Patient: Jose Vicente : 1945 Sex: M Age: 72 Exam Name: XR CXR 2VW PA/LAT Exam Date: 05/19/17 Report # : [id number] CPT Code: 50060 EMR/MR #: [id number] Ordering: ROMÁN BOJORQUEZ Admiting: Primary: Eden Brown MD Attending: Signed XR CXR 2VW PA/LAT,05/19/2017 2:54 PM: Clinical History: Dyspnea and shortness of breath. Previous Exam: None at this facility. Findings: PA and lateral views of the chest are obtained, and demonstrate flattening of the hemidiaphragms bilaterally. There is some increased density within the lung base not seen on the PA view, but demonstrating a positive spine sign on the lateral view. Impression: Airspace disease within the lung bases seen best on the lateral view most likely representing an early pneumonia. Correlate clinically. Recommend followup imaging after treatment to document resolution. Dictated By: 05/19/17 1533 ALDA ARANA MD. Signed By: 05/19/17 1541 ALDA ARANA MD. Patient Problems - Patient Problem List (1) Pneumonia Current Visit: Yes Status: Acute Code(s): J18.9 - Pneumonia, unspecified organism Category: Medical (2) COPD (chronic obstructive pulmonary disease) Current Visit: Yes Status: Chronic Code(s): J44.9 - Chronic obstructive pulmonary disease, unspecified Qualifiers: COPD type: COPD with acute exacerbation Qualified Code(s): J44.1 - Chronic obstructive pulmonary disease with (acute) exacerbation Category: Medical (3) HTN (hypertension) Current Visit: Yes Status: Chronic Code(s): I10 - Essential (primary) hypertension Qualifiers: Hypertension type: essential hypertension Qualified Code(s): I10 - Essential (primary) hypertension Category: Medical (4) Numbness and tingling of both legs Current Visit: Yes Status: Chronic Code(s): R20.0 - Anesthesia of skin; R20.2 - Paresthesia of skin Category: Medical (5) Restless leg Current Visit: Yes Status: Chronic Code(s): G25.81 - Restless legs syndrome Category: Medical (6) Chronic hypercapnic respiratory failure Current Visit: Yes Status: Chronic Code(s): J96.12 - Chronic respiratory failure with hypercapnia Category: Medical (7) PRATIBHA and COPD overlap syndrome Current Visit: Yes Status: Chronic Code(s): G47.33 - Obstructive sleep apnea (adult) (pediatric); J44.9 - Chronic obstructive pulmonary disease, unspecified Category: Medical (8) Bilateral primary osteoarthritis of knee Current Visit: Yes Status: Acute Code(s): M17.0 - Bilateral primary osteoarthritis of knee Category: Medical
== END 2017-05-22 16:30 | disposition home or self-care (01) | DRG 194 ==
LOC: ER 14:25 → MED/SURG 16:46
PROVIDERS: ADMIT Internal Medicine; ATTEND Internal Medicine

== ENCOUNTER 2017-08-26 12:32 | Inpatient (IN) ==
--- NOTE | 2017-08-26 12:43 | EKG ---
[address] [address] Measurements Intervals Rowe Rate: 62 P: 54 LA: 185 QRS: 17 QRSD: 149 T: 42 QT: 457 QTc: 463 Interpretive Statements SINUS RHYTHM LEFT BUNDLE BRANCH BLOCK No previous ECG available for comparison Electronically Signed On 08-26-17 13:43:04 MDT by Chino Chatman [email or web address]
[2017-08-26] MEDS ORDERED: Sodium Chloride 0.9% 1,000 ML PRIMARY IV ONE (13:01)
[2017-08-26] MEDS ORDERED: NORMAL SALINE 10 ML SYRINGE FLUSH IVP PRN ×2 (13:01→16:27)
[2017-08-26] MEDS ORDERED: IPRATROPIUM/ALBUTEROL SULFATE 3 ML NEB NEB ONE (13:01)
[2017-08-26 13:36] LABS: BLOOD UREA NITROGEN 25 mg/dL (7-22); BUN/CREATININE RATIO 27.77 (6-20); SERUM ALBUMIN 3.7 g/dL (3.5-4.8)
[2017-08-26 13:46] LABS: BASOPHILS # (AUTO) 0.01 10*3/UL; BASOPHILS % (AUTO) 0.1 % (0-1); EOSINOPHILS # (AUTO) 0.02 10*3/UL; EOSINOPHILS % (AUTO) 0.3 % (0-8); Hematocrit [HCT] 25.5 % (42.0-52.0); LYMPHOCYTES # (AUTO) 0.54 10*3/uL; MEAN CORPUSCULAR HEMOGLOBIN 24.6 PG (27-31); MEAN CORPUSCULAR HGB CONC 27.1 g/dL (33-37); MEAN CORPUSCULAR VOLUME 90.7 FL (80-90); MONOCYTES # (AUTO) 0.22 10*3/UL (0.3-0.8); MONOCYTES % (AUTO) 2.8 % (5-15); NEUTROPHILS # (AUTO) 6.83 10*3/UL; NEUTROPHILS % (AUTO) 87.6 % (50-80); RED BLOOD COUNT 2.81 10^6/uL (4.70-6.10)
[2017-08-26 13:49] LABS: Hemoglobin [HGB] 6.9 g/dL (14.0-18.0); PLATELET MORPHOLOGY COMMENT NORMAL MORPHOLOGY (NORM); WBC MORPHOLOGY COMMENT NORMAL MORPHOLOGY (NORM)
[2017-08-26 13:50] LABS: RBC MORPHOLOGY COMMENT SEE COMMENTS (NORM)
[2017-08-26 13:57] LABS: VENOUS PH 7.33 (7.32-7.42)
--- NOTE | 2017-08-26 14:35 | DI ---
XR CXR 2VW PA/LAT,08/26/2017 1:01 PM: Clinical History: Dyspnea Previous Exam: May 19, 2017 Findings: PA and lateral views of the chest are obtained, and demonstrate stable cardiomegaly. Overlying EKG le ads are seen. The lungs are clear and unchanged from the prior exam. Impression: No acute cardiopulmonary disease.
[2017-08-26] MEDS ORDERED: GABAPENTIN 300 MG CAPSULE PO ONE (15:05)
[2017-08-26] MEDS ORDERED: Ropinirole Tab 0.25 MG TAB PO ONE (15:05)
[2017-08-26] MEDS ORDERED: ONDANSETRON 4 MG/2 ML VIAL IVP PRN (16:27)
[2017-08-26] MEDS ORDERED: ACETAMINOPHEN 325 MG TABLET PO PRN (16:27)
[2017-08-26] MEDS ORDERED: CALCIUM CARBONATE 500 MG (TUMS) CHEWABLE TABLET PO PRN (16:27)
[2017-08-26] MEDS ORDERED: DOCUSATE 100 MG CAPSULE PO PRN ×2 (16:27→16:43)
[2017-08-26] MEDS ORDERED: LIDOCAINE W/ SODIUM BICARB 0.5 ML SYR SUBD PRN (16:27)
[2017-08-26] MEDS ORDERED: Sodium Chloride 0.9% 500 ML PRIMARY IV ONE (16:29)
[2017-08-26] MEDS ORDERED: FUROSEMIDE 10 MG/1 ML - 2 ML VIAL IVP ONE (16:29)
[2017-08-26] MEDS ORDERED: Pantoprazole Inj 40 MG in Normal Saline Flush 10 ML IVP SCH (16:45)
--- NOTE | 2017-08-26 16:46 | PDOC ---
HPI - History of Present Illness Date of Service: 08/26/17 Time of Service: 17:00 Chief Complaint: Shortness of breath, dizziness of one week duration. Also report a bloated abdomen for 2 weeks History of Present Illness: This is a 72 years old male with medical history significant for history of advanced COPD on 5 L of oxygen, pulmonary hypertension, hypertension, restless leg leg syndrome, history of obstructive sleep apnea supposedly on a CPAP but he is not wearing it, bilateral knee arthritis who was sent to the hospital because of shortness of breath, dizziness, bloated abdomen and some diarrhea. He said the symptoms started about a week ago with worsening shortness of breath , bloated abdomen been going on for 2 weeks in addition he did have diarrhea multiple times not sure whether there is blood or not. Being somewhat lightheaded. There is no abdominal pain, but there is abdominal bloating, no vomiting. He is not sure whether he had any blood in the stool. He's not sure about the color of his stool. He did report though a decreased appetite. Because of all the symptoms he was sent to the ER in the ER evaluation showed a hemoglobin of 6.9 Hemoccult stool was positive and he was admitted. Past Medical History Medical History: 1. COPD, 5 L of oxygen at baseline. 2. Pulmonary hypertension. 3. Hypertension. 4. Restless legs syndrome. 5. Peripheral edema. 6. History of pneumonia, recently on his hospital stay. 7. Obstructive sleep apnea on CPAP. 8. Bilateral knee osteoarthritis Surgical History: 1. Multiple back surgeries including a nerve stimulator that has run out of batteries. 2. Bilateral cataracts Pertinent Family History: Significant for diabetes in siblings. Past Social History: Has been for over 50 years, has 5 children. Lives in [place] near [place]. Retired. Just moved [place] here [place] to the [place]. Does not smoke. History of smoking in the past. 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 Does not drink alcohol. Tobacco Use: Former Smoker In the Past 12 Months, Have Used or Abuse Any of the Following Substance: None Alcohol Use: None Medication / Allergies Home Medications: Home Medications 3 Medication Instructions Recorded Confirmed Type aspirin 81 mg tablet,delayed 81 mg PO .every other day tab 05/03/17 08/26/17 History release losartan 50 mg tablet 50 mg PO QDAY 05/03/17 08/26/17 History tamsulosin 0.4 mg capsule 0.4 mg PO BEDTIME 05/03/17 08/26/17 History ipratropium-albuterol 0.5 mg-3 3 ml INH QID PRN #120 ml 05/25/17 08/26/17 Rx mg(2.5 mg base)/3 mL nebulization soln Acetaminophen [Tylenol] 650 mg PO Q6H PRN tab 06/15/17 08/26/17 Rx Albuterol Neb Soln 0.083% 2.5 mg NEB RTQ4H PRN vial.neb 06/15/17 08/26/17 Rx Calcium Carbonate [Tums] 1 - 2 tab PO Q6H PRN tab.chew 06/15/17 08/26/17 Rx Cholecalciferol [Vitamin D3] 1,000 iu PO DAILY tab 06/15/17 08/26/17 Rx Docusate Sodium [Colace] 100 mg PO BID PRN cap 06/15/17 08/26/17 Rx Flutica/Salmet 250/50 Inhaler 1 puff INH RTBID inhaler 06/15/17 08/26/17 Rx [Advair Diskus 250/50 Inhaler] Folic Acid 1 mg PO DAILY tab 06/15/17 08/26/17 Rx Furosemide [Lasix] 40 mg PO BID@0700,1300 tab 06/15/17 08/26/17 Rx Gabapentin [Neurontin] 600 mg PO QID cap 06/15/17 08/26/17 Rx Potassium Chloride [Klor-Con] 40 meq PO BID tab 06/15/17 08/26/17 Rx Tiotropium Inhalation Cap 18 mcg INH RTDAILY inhaler 06/15/17 08/26/17 Rx [Spiriva Inhalation Cap] guaiFENesin ER Tab [Mucinex ER 600 mg PO BID tab 06/15/17 08/26/17 Rx Tab] predniSONE Tab [Deltasone Tab] 40 mg PO DAILY tab 06/15/17 08/26/17 Rx albuterol sulfate HFA 90 2 puff INH Q6H PRN g 06/21/17 08/26/17 History mcg/actuation aerosol inhaler ukltx-p-ivxfqrlrdfblw 150 unit 2 tab PO QAC tab 08/02/17 08/26/17 History tablet clonazepam 0.5 mg tablet 0.25 mg PO TID tab 08/02/17 08/26/17 History ropinirole 0.5 mg tablet 0.5 mg PO QID tab 08/02/17 08/26/17 History trazodone 50 mg tablet 50 mg PO QHS tab 08/02/17 08/26/17 History Allergies/Adverse Reactions: Allergies 3 Allergy/AdvReac Type Severity Reaction Status Date / Time adhesive Allergy RASH Verified 08/26/17 12:38 Sulfa (Sulfonamide Allergy SWELLING Verified 08/26/17 12:38 Antibiotics) MOUTH/TONGUE Review of Systems - Review of Systems All Systems: Reviewed & No Additional Complaints Except as Stated Exam - Vitals Vital Signs: Vital Signs Oxygen Flow Rate 6 Oxygen Delivery Method Nasal Cannula Height 5 ft 7 in Weight 250 lb - General General Appearance: No Acute Distress, Cooperative - Head Head Exam: Normal Inspection - Eye Eye Exam: POSITIVE: Normal Appearance - ENT ENT Exam: POSITIVE: Normal Exam - Neck Neck Exam: Normal Inspection - Respiratory Additional Respiratory Exam Details: Very poor air entry otherwise clear - Cardiovascular Cardiovascular Exam: POSITIVE: RRR - GI/Abdominal GI/Abdominal Exam: POSITIVE: Normal Bowel Sounds, Non Tender, Non Distended, Soft, No Organomegaly - Rectal Rectal Exam: POSITIVE: Deferred - External Exam: POSITIVE: Deferred - Extremities Additional Extremities Exam Details: Chronic dermatitic changes noted with the bilateral leg edema - Back Back Exam: POSITIVE: Normal Inspection - Neurological Neurological Exam: POSITIVE: Alert, Oriented x 3, CN II-XII Intact, Speech Intact / Clear, Moves All Extremities Equally - Psychiatric Psychiatric Exam: POSITIVE: Normal Affect Results - Labs CBC and BMP: 08/26/17 13:25 08/26/17 13:25 - Imaging Status: Report Reviewed by Me (Chest X ray no acute cardiopulmonary disease) Assessment and Plan - Patient Problems (1) Anemia Current Visit: Yes Status: Acute Comment: Likely secondary to GI bleed. He is on high dosage of steroid 40 mg a day plus aspirin so maybe he has some gastritis. Will put him on Protonix. He is okay with blood transfusion. He is not sure about an EGD. Because of history of bloating and decreased appetite may do a CT of the abdomen tomorrow. Code(s): D64.9 - Anemia, unspecified (2) HTN (hypertension) Current Visit: No Status: Chronic Comment: I think we'll hold the losartan for now. Will see what's his blood pressure in the morning and then will decide about resuming his medication or not Code(s): I10 - Essential (primary) hypertension Qualifiers: Hypertension type: essential hypertension Qualified Code(s): I10 - Essential (primary) hypertension (3) Chronic hypercapnic respiratory failure Current Visit: No Status: Chronic Comment: This is secondary to COPD continue previous nebulizers and inhalers. Code(s): J96.12 - Chronic respiratory failure with hypercapnia (4) Numbness and tingling of both legs Current Visit: No Status: Chronic Comment: He is on gabapentin continue Code(s): R20.0 - Anesthesia of skin; R20.2 - Paresthesia of skin (5) Restless leg Current Visit: No Status: Chronic Comment: Continue Requip Code(s): G25.81 - Restless legs syndrome
[2017-08-26] MEDS: GABAPENTIN 300 MG CAPSULE PO SCH ×2 (17:06→21:12)
--- NOTE | 2017-08-26 17:19 | PDOC ---
Dyspnea HPI - General Chief Complaint: Dyspnea Stated Complaint: DYSPNEA Date Seen by Provider: 08/26/17 Time Seen by Provider: 12:45 Source: POSITIVE: Patient, Other ( and daughter) Exam Limitations: POSITIVE: No limitations Treatment Prior to Arrival: REPORTS: None Nurse's Notes Reviewed & Considered: Yes - History of Present Illness Initial Comments: The patient is a 72-year-old male who was a resident of the [facility]. He presents to the emergency room complaining of cough and shortness of breath. He states he feels like he felt when he had "pneumonia" in June. Patient has a long-standing history of congestive heart failure and COPD. He wears a CPAP at night. History of hypertension. He smoked over a pack of cigarettes per day up until this past February. He receives nebulizer treatments with albuterol 3 or 4 times a day. He is on supplemental oxygen continuously, probably 4 L/m. Upon patient's arrival to the emergency room on 4 L by nasal cannula his oxygen saturation is 85%. He is noted to have a loose cough. No known fevers. He denies any GI or symptoms. No chest pain. No neurologic symptoms. He is obese. Body Location Affected: REPORTS: Chest Timing: REPORTS: Gradual, Getting Worse Duration: >24 hours (2-3 days) Severity: Moderate Quality: REPORTS: Other (Patient denies any pain anywhere) Initiating Event: DENIES: Upper Respiratory Illness, Out of Medications, Sports , Exercise, Aspiration, Choking, Allergy, Exposure - Smoke, Exposure - Mold, Exposure - Other Allergen Context: REPORTS: Activity (Patient very sedentary) Exacerbated By: REPORTS: Exertion, Coughing Associated Symptoms: DENIES: Fever, Chills, Sweating, Chest Pain, Chest Discomfort, Left Chest, Right Chest, Central Chest, Chest Heaviness, Chest Tightness, Painful Breathing, Radiation to Back, Radiation to Jaw, Radiation to Arm, Bloody Cough, Productive Cough, Heart Racing, Leg Pain, Calf Pain, Ankle Swelling, Leg Swelling, Dizziness, Light-Headedness, Anxiety, Tingling - Hands, Tingling - Face, Muscle Spasms - Hands, Muscle Spasms - Feet Similar Symptoms Previously: Yes Recently seen/treated/hospitalized: Yes Any Prior Injuries Related to Current Complaint?: No - Patient Home Medications Home Medications: Home Medications aspirin 81 mg tablet,delayed release 81 mg PO .every other day tab 05/03/17 losartan 50 mg tablet 50 mg PO QDAY 05/03/17 tamsulosin 0.4 mg capsule 0.4 mg PO BEDTIME 05/03/17 ipratropium-albuterol 0.5 mg-3 mg(2.5 mg base)/3 mL nebulization soln 3 ml INH QID PRN #120 ml 05/25/17 Acetaminophen [Tylenol] 650 mg PO Q6H PRN tab 06/15/17 Albuterol Neb Soln 0.083% 2.5 mg NEB RTQ4H PRN vial.neb 06/15/17 Calcium Carbonate [Tums] 1 - 2 tab PO Q6H PRN tab.chew 06/15/17 Cholecalciferol [Vitamin D3] 1,000 iu PO DAILY tab 06/15/17 Docusate Sodium [Colace] 100 mg PO BID PRN cap 06/15/17 Flutica/Salmet 250/50 Inhaler [Advair Diskus 250/50 Inhaler] 1 puff INH RTBID inhaler 06/15/17 Folic Acid 1 mg PO DAILY tab 06/15/17 Furosemide [Lasix] 40 mg PO BID@0700,1300 tab 06/15/17 Gabapentin [Neurontin] 600 mg PO QID cap 06/15/17 Potassium Chloride [Klor-Con] 40 meq PO BID tab 06/15/17 Tiotropium Inhalation Cap [Spiriva Inhalation Cap] 18 mcg INH RTDAILY inhaler 06/15/17 guaiFENesin ER Tab [Mucinex ER Tab] 600 mg PO BID tab 06/15/17 predniSONE Tab [Deltasone Tab] 40 mg PO DAILY tab 06/15/17 albuterol sulfate HFA 90 mcg/actuation aerosol inhaler 2 puff INH Q6H PRN g 01/29 jwibm-r-sxzkeojhlbxsb 150 unit tablet 2 tab PO QAC tab 08/02/17 clonazepam 0.5 mg tablet 0.25 mg PO TID tab 08/02/17 ropinirole 0.5 mg tablet 0.5 mg PO QID tab 08/02/17 trazodone 50 mg tablet 50 mg PO QHS tab 08/02/17 - Patient Allergies Allergies/Adverse Reactions: Allergies 3 Allergy/AdvReac Type Severity Reaction Status Date / Time adhesive Allergy RASH Verified 08/26/17 12:38 Sulfa (Sulfonamide Allergy SWELLING Verified 08/26/17 12:38 Antibiotics) MOUTH/TONGUE Past Medical History - heen HEENT History: Denies History Cardiovascular History: Hypertension, Hyperlipidemia Additional Cardiovasular History: RHEUMATIC FEVER WITH VALVE DAMAGE Respiratory History: COPD, Shortness of Breath, Home Oxygen Use, Home CPAP Use Gastrointestinal History: GI Bleed Genitourinary History: Denies History Endocrine History: Denies History Musculoskeletal History: Arthritis, Rheumatoid Arthritis, Back Pain Prosthesis or Implant: Yes (SUN/SCREWS LUMBAR BACK, LT ANKLE) Additional Musculoskeletal History: 2 NECK, 1 LUMBAR SURGERY. LT WRIST, ARM AND ANKLE SURGERY. RESTLESS LEG SYNDROME Neurological History: Other (please comment) Additional Neurological History: ESSENTIAL TREMORS Blood Disorders: Anemia Psychiatric History: Depression History of Sexually Transmitted Diseases: No Male Reproductive History: Denies History Cancer History: Denies History In Past Year Been Physically Harmed or Verbally Threatened: No History of MDRO: No Tobacco Use: Former Smoker In the Past 12 Months, Have Used or Abuse Any Substance: None Previous Surgical History: Yes Type / Date of Surgery: NECK, BACK, ANKLE, WRIST, ARM Anesthesia Reactions: No Significant Family History: No pertinent family hx Past Medical History Reviewed: Reviewed - No Changes ROS - Limitations ROS Limitations: No Limitations Constitution: REPORTS: Denies Symptoms Cardiovascular: REPORTS: Denies Cardiac Symptoms Respiratory: REPORTS: Cough Productive (Of mucopurulent sputum), Other (Dyspnea) Neurological: REPORTS: Denies Neuro Symptoms Gastrointestinal: REPORTS: Denies GI Symptoms Endocrine: REPORTS: Denies Symptoms Musculoskeletal: REPORTS: Denies MS Symptoms Genitourinary: REPORTS: Denies Symptoms Eyes: REPORTS: Denies Symptoms ENT: REPORTS: Denies Symptoms Skin: REPORTS: Denies Skin Symptoms Lympathic: REPORTS: Denies Lympathic Symptoms Immunologic: POSITIVE: Denies Symptoms Psychiatric: POSITIVE: Denies Psych Symptoms Dyspnea Physical Exam - General Appearance General Appearance: REPORTS: Alert, Cooperative, No Evidence of Trauma, Mild Distress, Other (Obese). DENIES: No Acute Distress - HEENT HEENT: POSITIVE: Head Inspection Nml, Eyes Inspection Nml, Ears Inspection Nml, Nose Inspection Nml, Oral/Dental Inspect. Nml, Pharynx Inspect. Nml, PERRL, EOMI - Neck Neck: REPORTS: Normal Inspection, No Carotid Bruit - Respiratory Respiratory: REPORTS: No Pleuritic Chest Pain, Speaks Full Sentences, No Pain on Inspiration, Rhonchi (Scattered in both lung oneil), Decreased Air Movement , See Diagram. DENIES: Breath Sounds Normal (Scattered rhonchi both lung oneil ), Respiratory Distress (Dfqr-sr-hjhyxdfb), Fatigue, Wheezes, Rales, Prolonged Expirations, Accessory Muscle Use, Retractions, Splinting, Dull on Percussion, Chest Wall Tenderness, Speaks Broken Sentences, Stridor, Respiratory Failure - Cardiovascular Cardiovascular: REPORTS: Regular Rate and Rhythm, Heart Sounds Normal, Equal Pulses, Strong Pulses, No Murmur, No Gallop, No Friction Rub, No JVD Peripheral Pulses: Radial (R): 2+, Radial (L): 2+ - Abdomen Abdomen: Soft: (All Quadrants), Normal Bowel Sounds: (All Quadrants), Denies Tenderness: (All Quadrants), No Splenomegaly: (All Quadrants), No Hepatomegaly: (All Quadrants), No Guarding: (All Quadrants), No Rebound: (All Quadrants), No Palpable Pulse: (All Quadrants), No Palpabale Mass: (All Quadrants), No Distention: (All Quadrants), No Rigidity: (All Quadrants) - Rectal Rectal: POSITIVE: Non Tender, Normal Rectal Tone, Heme Positive Stool - Skin Skin: REPORTS: Intact, Normal For Race, Warm, Dry, No Rash - Extremities Extremity: Non-Tender: (All Extremities), Normal ROM: (All Extremities), Normal Inspection: (All Extremities) Additional Extremities Details: Some bilateral pedal edema. 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 Lab Results Reviewed by Me: Yes (d-dimer negative; venous blood gas shows carbon dioxide retention) CBC and BMP: 08/26/17 13:25 08/26/17 13:25 EKG Interpreted/Reviewed By Me:: Yes (left bundle branch block at 62/m) EKG Interpretation:: POSITIVE: Abnormal EKG (Left bundle-branch block) - Patient's Progress Pain Medication Addressed: POSITIVE: Not Applicable School/Work Release Addressed: POSITIVE: Not Applicable Re-Examine Time: 14:55 Re-Examine Comment: Diagnosis of chronic COPD with carbon dioxide retention and significant anemia with Hemoccult-positive stool discussed with patient and family members. Patient admitted by Dr. Horton for further evaluation and treatment. Patient given a DuoNeb treatment here in the emergency room with equivocal results. Patient was kept on nonrebreather mask and oxygen saturation remains around 94 on this. Status: POSITIVE: Unchanged, Re-Examined Air Movement: POSITIVE: Fair - Consult Consult (If Yes, Name of Consulting MD & Time Called): Yes (Dr. Horton, hospitalist, [id number]) Consulting MD will see pt:: POSITIVE: [facility] [place] Admit Counseled: POSITIVE: Patient, Family, RE: Lab Results, RE: Radiology Results, RE : DX, RE: Need for F/U Patient Care Time - Estimated PCT Patient Care Time (In Minutes): 60 Vital Signs - Recent Vital Signs Vital Signs: Vital Signs (Last 8 hours) Temp Pulse Pulse Resp BP Pulse Ox 08/26/17 14:57 97.7 F 66 66 24 121/64 87 08/26/17 13:34 61 24 96 08/26/17 13:33 62 30 H 96 Blood pressure 121/64, heart rate 66, respiratory rate 24, amateur 97.7F - VS Reviewed Vital Signs Reviewed: Yes Discharge Clinical Impression: Chronic obstructive lung disease, Anemia, Gastrointestinal bleeding Discharge Disposition: Admit to Inpatient Condition: Fair Date Decision to Admit to Inpatient: 08/26/17 Time Decision to Admit to Inpatient: 14:53
[2017-08-26] MEDS ORDERED: Pantoprazole Inj 80 MG in Normal Saline Flush 10 ML IVP ONE (18:43)
[2017-08-26] MEDS ORDERED: IPRATROPIUM/ALBUTEROL SULFATE 3 ML NEB NEB PRN (19:00)
[2017-08-26] MEDS: FLUTICASONE/SALMETEROL 250/50 UD INHALER INH SCH (19:29)
[2017-08-26] MEDS: Ropinirole Tab 0.25 MG TAB PO SCH (21:11)
[2017-08-26] MEDS: TAMSULOSIN 0.4 MG CAPSULE PO SCH (21:12)
[2017-08-26] MEDS: POTASSIUM CHLORIDE 20 MEQ TAB PO SCH (21:12)
[2017-08-26] MEDS: GUAIFENESIN 600 MG TABLET PO SCH (21:13)
[2017-08-26] MEDS ORDERED: Ropinirole Tab 1 MG TAB PO ONE (22:57)
[2017-08-26] MEDS ORDERED: traZODone Tab 50 MG TAB PO ONE (23:14)
[2017-08-27] MEDS ORDERED: FUROSEMIDE 10 MG/1 ML - 2 ML VIAL ONE (00:33)
[2017-08-27 05:52] LABS: BASOPHILS # (AUTO) 0.01 10*3/UL; BASOPHILS % (AUTO) 0.1 % (0-1); EOSINOPHILS # (AUTO) 0.17 10*3/UL; EOSINOPHILS % (AUTO) 2.2 % (0-8); Hematocrit [HCT] 29.7 % (42.0-52.0); Hemoglobin [HGB] 8.6 g/dL (14.0-18.0); LYMPHOCYTES # (AUTO) 1.76 10*3/uL; MEAN CORPUSCULAR HEMOGLOBIN 25.5 PG (27-31); MEAN CORPUSCULAR VOLUME 88.1 FL (80-90); MEAN PLATELET VOLUME 9.4 FL (7.4-12.2); MONOCYTES # (AUTO) 0.54 10*3/UL (0.3-0.8); MONOCYTES % (AUTO) 6.9 % (5-15); NEUTROPHILS # (AUTO) 5.22 10*3/UL; NEUTROPHILS % (AUTO) 66.6 % (50-80); RED BLOOD COUNT 3.37 10^6/uL (4.70-6.10)
[2017-08-27 06:06] LABS: PLATELET MORPHOLOGY COMMENT NORMAL MORPHOLOGY (NORM); RBC MORPHOLOGY COMMENT NORMAL MORPHOLOGY (NORM); WBC MORPHOLOGY COMMENT NORMAL MORPHOLOGY (NORM)
[2017-08-27 06:08] LABS: BLOOD UREA NITROGEN 16 mg/dL (7-22)
[2017-08-27] MEDS: ALBUTEROL SULFATE 2.5 MG/3 ML NEB PRN ×3 (06:10→15:00)
[2017-08-27] MEDS: FLUTICASONE/SALMETEROL 250/50 UD INHALER INH SCH ×2 (06:16→19:01)
[2017-08-27] MEDS: TIOTROPIUM BROMIDE 18 MCG CAPSULE INH SCH (06:16)
[2017-08-27] MEDS: FUROSEMIDE 40 MG TABLET PO SCH ×2 (07:10→13:07)
[2017-08-27] MEDS: GUAIFENESIN 600 MG TABLET PO SCH ×2 (08:11→20:23)
[2017-08-27] MEDS: GABAPENTIN 300 MG CAPSULE PO SCH ×4 (08:12→20:21)
[2017-08-27] MEDS: FOLIC ACID 1 MG TABLET PO SCH (08:13)
[2017-08-27] MEDS: POTASSIUM CHLORIDE 20 MEQ TAB PO SCH ×2 (08:13→20:22)
[2017-08-27] MEDS: Ropinirole Tab 0.25 MG TAB PO SCH ×3 (08:14→21:21)
[2017-08-27] MEDS: CHOLECALCIFEROL 1000 IU TABLET PO SCH (08:14)
--- NOTE | 2017-08-27 08:59 | DI ---
CT Abdomen/Pelvis W Contrast,08/27/2017 7:00 AM: Clinical History: Bloating, decreased appetite and positive occult blood. Previous Exam: None at this facility. Findings: Multiple helically acquired CT images are obtained through the abdomen and pelvis following the intra venous administration of 85 cc of Isovue 300. There is subsegmental atelectasis in the lung bases. Degenerative changes of the spine are seen. Coronary artery calcifications are seen. There is mild di ffuse COPD. The liver, spleen, pancreas, adrenals and kidneys are unremarkable. Diffuse peripheral vascular calci fications are seen. The gallbladder is unremarkable. The urinary bladder is also unremarkable. There is metallic streak artifact involving the posterior lumbar spine. There is transpedicular fusio n of the entire lumbar spine with multilevel laminectomies. There is also an epidural stimulator codey ce noted in good position. Multiple peripheral vascular calcifications are seen. There is moderate stool seen throughout the colon. Degenerative changes of the sacroiliac joints are noted. The urinary bladder is unremarkable. Impression: 1. Advanced post surgical changes of the lumbar spine. 2. No acute intra-abdominal pathology.
[2017-08-27] MEDS ORDERED: LOSARTAN 50 MG TABLET PO SCH (09:00)
[2017-08-27] MEDS ORDERED: Lactated Ringers 1,000 ML PRIMARY IV SCH (10:15)
[2017-08-27] MEDS ORDERED: PROPOFOL 10 MG/1 ML (200 MG/20 ML) VIAL IV ONE (10:19)
[2017-08-27] MEDS ORDERED: MIDAZOLAM 5 MG/1 ML ONE (10:23)
--- NOTE | 2017-08-27 10:23 | CONSULT ---
Consult Note - Consult Consult Date: 08/27/17 Reason for Consult: PreOp Consulation : General Surgery Requesting Physician: Dr. Horton. Primary Care Provider: Eden Brown MD - History of Present Illness History of Present Illness: Patient is a 72-year-old male admitted from [facility] for shortness of breath and dizziness. He also complained abdominal bloating and diarrhea. This has been going on for a week or 2. He was found to be anemic with a hemoglobin of 6.9 and a hematocrit of 25.5. On 06/16/2017 his hemoglobin was 11.7 and his hematocrit was 37.9. He has had no obvious external blood loss. I am asked to see him for a GI bleed. His stool was Hemoccult positive in the emergency room. He does not know about any dark black or bloody stools. He has had no hematemesis. Patient has been on steroids and aspirin. He has a history of heartburn but he denies any now. He does report he can no longer eat hot sauce. Patient had a CT scan of his abdomen and pelvis which showed moderate amount of stool in the colon. There was no acute pathology. Patient denies having a prior upper or lower endoscopy. He has never had any abdominal procedures. Review of Systems - Gastrointestinal Gastrointestinal / Abdominal: REPORTS: Diarrhea, Bloating, See HPI Past Medical History Medical History: 1. COPD, 5 L of oxygen at baseline. 2. Pulmonary hypertension. 3. Hypertension. 4. Restless legs syndrome. 5. Peripheral edema. 6. History of pneumonia, recently on his hospital stay. 7. Obstructive sleep apnea on CPAP. 8. Bilateral knee osteoarthritis Surgical History: 1. Multiple back surgeries including a nerve stimulator that has run out of batteries. 2. Bilateral cataracts Pertinent Family History: Significant for diabetes in siblings. Past Social History: Has been for over 50 years, has 5 children. [place]. Retired. Just moved [place] here [place] to the [place]. Does not smoke. History of smoking in the past. 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 Does not drink alcohol. Tobacco Use: Former Smoker In the Past 12 Months, Have Used or Abuse Any of the Following Substance: None Alcohol Use: None Medication / Allergies Home Medications: Home Medications 3 Medication Instructions Recorded Confirmed Type aspirin 81 mg tablet,delayed 81 mg PO .every other day tab 05/03/17 08/26/17 History release losartan 50 mg tablet 50 mg PO QDAY 05/03/17 08/26/17 History tamsulosin 0.4 mg capsule 0.4 mg PO BEDTIME 05/03/17 08/26/17 History ipratropium-albuterol 0.5 mg-3 3 ml INH QID PRN #120 ml 05/25/17 08/26/17 Rx mg(2.5 mg base)/3 mL nebulization soln Acetaminophen [Tylenol] 650 mg PO Q6H PRN tab 06/15/17 08/26/17 Rx Albuterol Neb Soln 0.083% 2.5 mg NEB RTQ4H PRN vial.neb 06/15/17 08/26/17 Rx Calcium Carbonate [Tums] 1 - 2 tab PO Q6H PRN tab.chew 06/15/17 08/26/17 Rx Cholecalciferol [Vitamin D3] 1,000 iu PO DAILY tab 06/15/17 08/26/17 Rx Docusate Sodium [Colace] 100 mg PO BID PRN cap 06/15/17 08/26/17 Rx Flutica/Salmet 250/50 Inhaler 1 puff INH RTBID inhaler 06/15/17 08/26/17 Rx [Advair Diskus 250/50 Inhaler] Folic Acid 1 mg PO DAILY tab 06/15/17 08/26/17 Rx Furosemide [Lasix] 40 mg PO BID@0700,1300 tab 06/15/17 08/26/17 Rx Gabapentin [Neurontin] 600 mg PO QID cap 06/15/17 08/26/17 Rx Potassium Chloride [Klor-Con] 40 meq PO BID tab 06/15/17 08/26/17 Rx Tiotropium Inhalation Cap 18 mcg INH RTDAILY inhaler 06/15/17 08/26/17 Rx [Spiriva Inhalation Cap] guaiFENesin ER Tab [Mucinex ER 600 mg PO BID tab 06/15/17 08/26/17 Rx Tab] predniSONE Tab [Deltasone Tab] 40 mg PO DAILY tab 06/15/17 08/26/17 Rx albuterol sulfate HFA 90 2 puff INH Q6H PRN g 06/21/17 08/26/17 History mcg/actuation aerosol inhaler qcccu-f-uwesoufnfqrcj 150 unit 2 tab PO QAC tab 08/02/17 08/26/17 History tablet clonazepam 0.5 mg tablet 0.25 mg PO TID tab 08/02/17 08/26/17 History ropinirole 0.5 mg tablet 0.5 mg PO QID tab 08/02/17 08/26/17 History trazodone 50 mg tablet 50 mg PO QHS tab 08/02/17 08/26/17 History Allergies/Adverse Reactions: Allergies 3 Allergy/AdvReac Type Severity Reaction Status Date / Time adhesive Allergy RASH Verified 08/26/17 12:38 Sulfa (Sulfonamide Allergy SWELLING Verified 08/26/17 12:38 Antibiotics) MOUTH/TONGUE Results - Labs CBC and BMP: 08/27/17 04:41 08/27/17 04:41 - Imaging Status: Image Reviewed by Me, Report Reviewed by Me Exam - Vitals Vital Signs: Vital Signs Temperature 97.3 F Temperature Source Temporal Artery Scan Pulse Rate [Pulse Oximeter 59 Bilateral Radial] Pulse Rate 50 Respiratory Rate 22 Blood Pressure [Left Arm] 95/41 Blood Pressure 114/64 Pulse Ox 91 Oxygen Flow Rate 1 Oxygen Delivery Method Nasal Cannula Height 5 ft 7 in Weight 268 lb 14.4 oz - General General Appearance: No Acute Distress, Cooperative - Respiratory Respiratory Exam: POSITIVE: Breathing Non Labored, Decreased Breath Sounds - Cardiovascular Cardiovascular Exam: POSITIVE: RRR, No Murmur - GI/Abdominal GI/Abdominal Exam: POSITIVE: Normal Bowel Sounds, Non Tender, Non Distended, Soft Additional GI/Abdominal Exam Details: Abdomen is morbidly obese but soft. Good bowel tones. No tenderness. - Rectal Rectal Exam: POSITIVE: Deferred (Will recommend a colonoscopy in the future.) - Neurological Neurological Exam: POSITIVE: Alert, Oriented x 3 - Psychiatric Psychiatric Exam: POSITIVE: Normal Affect, Normal Mood Assessment and Plan - Patient Problems (1) Gastrointestinal bleeding Current Visit: Yes Status: Acute Priority: High Comment: Gastrointestinal bleeding. Source unknown. We'll start with an upper endoscopy today.The procedure has been discussed with the patient in complete yet simple terms including benefits, risks, and alternatives. All questions have been answered. Informed consent has been obtained. Patient should have a colonoscopy at some point. As he has no evidence of active bleeding that can probably be done as an outpatient. It will require a bowel prep. I discussed everything with the patient, his family, and Dr. Horton. Proceed with upper endoscopy today. Code(s): K92.2 - Gastrointestinal hemorrhage, unspecified
[2017-08-27] MEDS ORDERED: KETAMINE 100 MG/1 ML - 5 ML ONE (10:51)
[2017-08-27] MEDS ORDERED: LIDOCAINE W/ SODIUM BICARB 0.5 ML SYR ONE (10:58)
--- NOTE | 2017-08-27 12:00 | GEN.OPNOTE ---
EGD Operative Note Surgery Date: 08/27/17 Preoperative Diagnosis: Gastrointestinal bleeding. Anemia. Postoperative Diagnosis: Gastrointestinal bleeding. Anemia. Procedure: Esophagogastroduodenoscopy with biopsy. Surgeon: Brody Samuel MD Anesthesia Provider: Ingrid Michael CRNA Anesthesia Type: MAC Indications: Anemia with decreased hemoglobin and hematocrit. Hemoccult positive stool. No obvious melanotic stools or bright red blood per rectum. Findings: Esophagus: [Normal] GE Junction : [No significant inflammation. Irregular Z line. Biopsies taken.] Fundus : [Normal] Body : [Normal] Prepyloric : [Erythema and bile. Biopsies taken for mild erythema.] Small Intestine : [Normal with some mounding of the duodenal mucosa. No obvious ulcers.] A lubricated flexible upper endoscope was inserted passed through the esophagus and stomach into the duodenum. The duodenum and duodenal bulb were unremarkable without evidence of new or old blood. There is some nodularity to the duodenal mucosa but I could not see any ulcers. No bleeding. The pyloric channel was patent. The scope was withdrawn into the antrum there is obviously some bile and irritation. No ulcers. Biopsies were taken. Hemostasis was assured. The scope was retroflexed. The rest of the gastric mucosa was unremarkable. The scope was straightened and withdrawn into the distal esophagus. There is some irregularity of the Z line. Biopsies were taken. Hemostasis was assured. The scope was withdrawn through the remainder of a normal-appearing esophagus and brought to the hypopharynx under suction completing the procedure. The patient tolerated the procedure well without complication. He was taken back to the medical surgical unit in stable condition. I discussed whether or not to do a colonoscopy with the family. Will discuss with the patient later today and make appropriate plans. Estimated Blood Loss (mL): 1 Fluids: 200 mL of crystalloid. Pathology: Antral and distal esophageal biopsies. Complications: None.
--- NOTE | 2017-08-27 12:09 | CRNA.PROGR ---
Anesthesia Time - - Start date: 08/27/17 End date: 08/27/17 - Procedure/Recovery Time Anesthesia : Time In: 10:54 Anesthesia : Time Out: 11:39 Anesthesia : Total Time: 45 - Total Anesthesia Time Total Anesthesia Time (minutes): 45 - Other Weight: 121.971 kg Height: 5 ft 7 in Body Mass Index (BMI): 42.1 Physical Status: P4 (morbid obesity, Pulmonary htn, kleber, gi bleed.) Anesthesia Type: MAC
--- NOTE | 2017-08-27 12:10 | CRNA.PROGR ---
Post Anesthesia Phase II - Post Anesthesia Phase II Patient Stable and Discharged To: Med/Surg Care Assumed By Surgeon: Brody Samuel MD Temperature: 97.3 F Pulse Rate: 62 Respiratory Rate: 20 Blood Pressure: 114/64 Pulse Ox: 91 Total Otilio Score at Discharge: 9 Post Anesthesia Discharge Criteria Met: Yes
[2017-08-27] MEDS ORDERED: LIDOCAINE W/ SODIUM BICARB 0.5 ML SYR SUBD PRN (13:57)
[2017-08-27] MEDS ORDERED: NORMAL SALINE 10 ML SYRINGE FLUSH IVP PRN (13:57)
[2017-08-27] MEDS ORDERED: SUPREP BOWEL PREP KIT PO SCH (14:00)
--- NOTE | 2017-08-27 14:07 | PDOC(PROG) ---
General Note Progress Note: Upper endoscopy was done and showed no evidence of bleeding or no source of bleeding. Patient is now fully awake. His family is present. We discussed doing or not doing a further workup. There is no evidence of ongoing bleeding at this time. The patient and his family would like to proceed with colonoscopy while he is here. He has never had one. They understand we may not find a source. It still possible the small bowel is the site of the bleeding. I discussed the bowel prep with the patient. We'll proceed with the Suprep bowel prep today and plan colonoscopy tomorrow morning. The procedure has been discussed with the patient, and his family, in complete yet simple terms including benefits, risks, and alternatives. All questions have been answered. Informed consent has been obtained. Patient Problems - Patient Problem List (1) Gastrointestinal bleeding Current Visit: Yes Status: Acute Priority: High Code(s): K92.2 - Gastrointestinal hemorrhage, unspecified Category: Medical
--- NOTE | 2017-08-27 14:40 | PDOC(PROG) ---
Date and Time of Service: 08/27/2017 2 p.m. Interval History: Subjective Patient feels better after the transfusion, he feels his legs are stronger, he' s not dizzy or lightheaded. However still complain from restless legs. Still have some swelling in his legs. Breathing seemed to be stable. Objective : Data - Labs CBC and BMP: 08/27/17 04:41 08/27/17 04:41 Objective : Exam - General General Appearance: No Acute Distress, Morbidly Obese - Head Head Exam: Normal Inspection, Atraumatic - Eye Eye Exam: Normal Appearance - ENT ENT Exam: Normal Exam - Neck Neck Exam: Normal Inspection - Respiratory Additional Respiratory Exam Details: Decreased air entry otherwise clear - Cardiovascular Cardiovascular Exam: RRR - GI/Abdominal GI/Abdominal Exam: Normal Bowel Sounds, Non Tender, Non Distended, Soft, No Organomegaly - Rectal Rectal Exam: Deferred - External Exam: Deferred - Extremities Additional Extremities Exam Details: Edema in both legs present - Back Back Exam: Normal Inspection - Neurological Neurological Exam: Alert, Oriented x 3, CN II-XII Intact, Speech Intact / Clear - Psychiatric Psychiatric Exam: Normal Affect Assessment and Plan - Patient Problems (1) Anemia Current Visit: Yes Status: Acute Comment: This is secondary to GI bleed, status post 2 units of blood. will Recheck his hemoglobin tonight and may consider giving another blood. This may help his restless leg. No clear source of bleeding was found in the upper GI. Probably will restart his prednisone tomorrow until overdoses I think. colonoscopy tomorrow. We'll continue with Protonix prophylaxis. Code(s): D64.9 - Anemia, unspecified (2) HTN (hypertension) Current Visit: No Status: Chronic Comment: Continue holding losartan. Code(s): I10 - Essential (primary) hypertension Qualifiers: Hypertension type: essential hypertension Qualified Code(s): I10 - Essential (primary) hypertension (3) Chronic hypercapnic respiratory failure Current Visit: No Status: Chronic Comment: Continue nebulizer Code(s): J96.12 - Chronic respiratory failure with hypercapnia (4) Numbness and tingling of both legs Current Visit: No Status: Chronic Comment: Continue gabapentin. Code(s): R20.0 - Anesthesia of skin; R20.2 - Paresthesia of skin (5) Restless leg Current Visit: No Status: Chronic Comment: After talking to the family I think will give a trial of increasing the dosage of Requip. That would put him at the maximum daily dosage. I did tell him that he probably need some iron replacement post discharge. But will do it after the endoscopy. Code(s): G25.81 - Restless legs syndrome
[2017-08-27] MEDS ORDERED: SUPREP BOWEL PREP KIT PO ONE (14:46)
[2017-08-27 17:24] LABS: Hematocrit [HCT] 34.1 % (42.0-52.0); Hemoglobin [HGB] 9.7 g/dL (14.0-18.0)
[2017-08-27] MEDS: Ropinirole Tab 1 MG TAB PO SCH (20:22)
[2017-08-27] MEDS: traZODone Tab 50 MG TAB PO SCH (20:22)
[2017-08-27] MEDS: TAMSULOSIN 0.4 MG CAPSULE PO SCH (20:22)
[2017-08-28] MEDS ORDERED: Lactated Ringers 1,000 ML PRIMARY IV ONE (04:48)
[2017-08-28 05:36] LABS: BASOPHILS # (AUTO) 0.02 10*3/UL; BASOPHILS % (AUTO) 0.4 % (0-1); EOSINOPHILS # (AUTO) 0.15 10*3/UL; EOSINOPHILS % (AUTO) 2.7 % (0-8); Hematocrit [HCT] 28.6 % (42.0-52.0); Hemoglobin [HGB] 8.1 g/dL (14.0-18.0); LYMPHOCYTES # (AUTO) 1.05 10*3/uL; MEAN CORPUSCULAR HEMOGLOBIN 24.8 PG (27-31); MEAN CORPUSCULAR HGB CONC 28.3 g/dL (33-37); MEAN CORPUSCULAR VOLUME 87.7 FL (80-90); MEAN PLATELET VOLUME 9.1 FL (7.4-12.2); MONOCYTES # (AUTO) 0.44 10*3/UL (0.3-0.8); MONOCYTES % (AUTO) 7.9 % (5-15); NEUTROPHILS % (AUTO) 68.6 % (50-80); RED BLOOD COUNT 3.26 10^6/uL (4.70-6.10)
[2017-08-28 05:46] LABS: BLOOD UREA NITROGEN 13 mg/dL (7-22); BUN/CREATININE RATIO 16.25 (6-20)
[2017-08-28 05:50] LABS: PLATELET MORPHOLOGY COMMENT NORMAL MORPHOLOGY (NORM); WBC MORPHOLOGY COMMENT NORMAL MORPHOLOGY (NORM)
[2017-08-28 05:51] LABS: RBC MORPHOLOGY COMMENT SEE COMMENTS (NORM)
[2017-08-28] MEDS ORDERED: Lactated Ringers 1,000 ML PRIMARY IV SCH (06:00)
[2017-08-28] MEDS: ALBUTEROL SULFATE 2.5 MG/3 ML NEB PRN ×5 (06:24→22:42)
[2017-08-28] MEDS: FLUTICASONE/SALMETEROL 250/50 UD INHALER INH SCH ×2 (06:26→18:44)
[2017-08-28] MEDS: TIOTROPIUM BROMIDE 18 MCG CAPSULE INH SCH (06:27)
[2017-08-28] MEDS ORDERED: PROPOFOL 10 MG/1 ML (200 MG/20 ML) VIAL IV ONE (08:16)
[2017-08-28] MEDS ORDERED: MIDAZOLAM 5 MG/1 ML ONE (08:16)
[2017-08-28] MEDS ORDERED: GLYCOPYRROLATE 0.2 MG/1 ML VIAL ONE (08:17)
[2017-08-28] MEDS ORDERED: KETAMINE 100 MG/1 ML - 5 ML ONE (08:26)
--- NOTE | 2017-08-28 10:01 | CRNA.PROGR ---
Post Anesthesia Phase II - Post Anesthesia Phase II Patient Stable and Discharged To: Med/Surg Care Assumed By Surgeon: Brody Samuel MD Temperature: 97.7 F Pulse Rate: 71 Respiratory Rate: 20 Blood Pressure: 114/64 Pulse Ox: 90 Total Otilio Score at Discharge: 9 Post Anesthesia Discharge Criteria Met: Yes
--- NOTE | 2017-08-28 10:01 | CRNA.PROGR ---
Anesthesia Time - - Start date: 08/28/17 End date: 08/28/17 - Procedure/Recovery Time Anesthesia : Time In: 08:59 Anesthesia : Time Out: 09:56 Anesthesia : Total Time: 57 - Total Anesthesia Time Total Anesthesia Time (minutes): 57 - Other Weight: 121.971 kg Height: 5 ft 7 in Body Mass Index (BMI): 42.1 Physical Status: P4 (GI Bleed, Morbid Obesity, PRATIBHA, COPD) Anesthesia Type: MAC
--- NOTE | 2017-08-28 10:07 | GEN.OPNOTE ---
Colonoscopy Procedure Note Surgery Date: 08/28/17 Preoperative Diagnosis: Gastrointestinal bleeding. Anemia. Postoperative Diagnosis: Same. Procedure: Complete colonoscopy with biopsy and destruction of a small cecal polyp. Surgeon: Brody Samuel MD Anesthesia Provider: Ingrid Michael CRNA Anesthesia Type: MAC Indications: Patient presented with lightheadedness and dizziness. He was anemic. He had an upper endoscopy yesterday. No source of bleeding was identified. For completion we opted to proceed with colonoscopy to rule out a lower GI source of his bleeding. At the present time there is no active bleeding. Findings: Prep : [Fair. Some retained liquid stool which from the cecum was Hemoccult positive. I was able to clear the liquid stool as we proceeded.] Cecum : [Small polyp biopsied and destroyed otherwise normal.] Ascending : [Normal.] Transverse : [Normal.] Sigmoid : [Normal.] Rectum : [Normal.] Digital Rectal Exam : [No perianal pathology. Prostate of normal size and consistency.] A lubricated flexible colonoscope was inserted and passed to the blind end of the cecum. The brown liquid stool in the cecum was checked for blood. It was Hemoccult positive. There was no new or old blood. There is a small polyp in the cecum which was biopsied and destroyed. Otherwise the cecum, ascending colon, hepatic flexure, transverse colon, splenic flexure, descending colon, sigmoid colon, rectum, and anal canal were all unremarkable. Air was aspirated as the scope was withdrawn. There was no evidence of other polyps, tumors, neoplastic masses, infectious or inflammatory processes identified. The scope was withdrawn completing the procedure. The patient tolerated the procedure well without complication. He will be taken back to the medical-surgical unit in stable condition. I discussed the findings with the hospitalist as well as the family. Nothing further to offer surgically. No other tests will localize the bleeding unless he is actively bleeding. There is no evidence of significant ongoing bleeding at this time. I would recommend feeding the patient, transfusing him, and a return to the [facility] for monitoring of further bleeding. Please call if I can be of further assistance. Endoscopy Procedures - Endoscopy Procedures Primary Endoscopy Procedure: [id number] : Colonoscopy w/Biopsy
[2017-08-28] MEDS: GUAIFENESIN 600 MG TABLET PO SCH ×2 (10:20→20:16)
[2017-08-28] MEDS: Ropinirole Tab 0.25 MG TAB PO SCH ×2 (10:20→16:45)
[2017-08-28] MEDS: POTASSIUM CHLORIDE 20 MEQ TAB PO SCH ×2 (10:23→20:17)
[2017-08-28] MEDS: GABAPENTIN 300 MG CAPSULE PO SCH ×4 (10:23→20:17)
[2017-08-28] MEDS: CHOLECALCIFEROL 1000 IU TABLET PO SCH (10:23)
[2017-08-28] MEDS: predniSONE Tab 20 MG TAB PO SCH (10:24)
[2017-08-28] MEDS: FOLIC ACID 1 MG TABLET PO SCH (10:24)
[2017-08-28] MEDS: PANTOPRAZOLE 40 MG TABLET PO SCH (10:27)
[2017-08-28] MEDS: FUROSEMIDE 40 MG TABLET PO SCH ×2 (10:27→14:34)
[2017-08-28] MEDS ORDERED: Sodium Chloride 0.9% 500 ML PRIMARY IV ONE (10:34)
--- NOTE | 2017-08-28 10:40 | PDOC(PROG) ---
Date and Time of Service: 08/28/2017 10:40 AM Interval History: Subjective Patient just had his colonoscopy, there was some polyps but nothing major present. Patient is complaining from pain in his feet as he did not get his medications yet. He expressed concern about going back to the prison. Objective : Data - Labs CBC and BMP: 08/28/17 05:02 08/28/17 05:02 Objective : Exam - General General Appearance: No Acute Distress, Cooperative, Morbidly Obese - Head Head Exam: Normal Inspection, Atraumatic - Eye Eye Exam: Normal Appearance - ENT ENT Exam: Normal Exam - Neck Neck Exam: Normal Inspection - Respiratory Additional Respiratory Exam Details: Decreased air entry otherwise clear - Cardiovascular Cardiovascular Exam: RRR - GI/Abdominal GI/Abdominal Exam: Normal Bowel Sounds, Non Tender, Non Distended, Soft, No Organomegaly - Rectal Rectal Exam: Deferred - External Exam: Deferred - Extremities Extremities Exam: +1 Edema - Back Back Exam: Normal Inspection - Neurological Neurological Exam: Alert, Oriented x 3, CN II-XII Intact, Speech Intact / Clear , Moves All Extremities Equally - Psychiatric Psychiatric Exam: Normal Affect Assessment and Plan - Patient Problems (1) Anemia Current Visit: Yes Status: Acute Comment: This is secondary to GI bleed. No clear reason found. Blood count is 8.1 today . I think will give another unit of blood. We'll see what his count tomorrow. The family and him are concerned about going back to the prison. They are concerned about the care that he gets there. I told him one thing we can help with is to keep him over the weekend her and once the telecommunications network planner is here on Wednesday will talk to them about exploring other prison and that would be in [place], did tell them though there are no promises. They understand but they do want to see if he can go to a different prison. Will start him also on ferrous iron and multivitamin. Code(s): D64.9 - Anemia, unspecified (2) HTN (hypertension) Current Visit: No Status: Chronic Comment: Continue holding the losartan Code(s): I10 - Essential (primary) hypertension Qualifiers: Hypertension type: essential hypertension Qualified Code(s): I10 - Essential (primary) hypertension (3) Chronic hypercapnic respiratory failure Current Visit: No Status: Chronic Comment: Continue nebulizer treatment Code(s): J96.12 - Chronic respiratory failure with hypercapnia (4) Numbness and tingling of both legs Current Visit: No Status: Chronic Comment: Continue his gabapentin Code(s): R20.0 - Anesthesia of skin; R20.2 - Paresthesia of skin (5) Restless leg Current Visit: No Status: Chronic Comment: Continue Requip at the current dosage. Code(s): G25.81 - Restless legs syndrome
[2017-08-28] MEDS: TAMSULOSIN 0.4 MG CAPSULE PO SCH (20:17)
[2017-08-28] MEDS: traZODone Tab 50 MG TAB PO SCH (20:17)
[2017-08-28] MEDS: Ropinirole Tab 1 MG TAB PO SCH (20:17)
[2017-08-28] MEDS ORDERED: ClonazePAM Tab 1 MG TABLET PO ONE (22:15)
[2017-08-29] MEDS: ALBUTEROL SULFATE 2.5 MG/3 ML NEB PRN ×2 (02:52→19:02)
[2017-08-29 06:40] LABS: BASOPHILS # (AUTO) 0.01 10*3/UL; BASOPHILS % (AUTO) 0.2 % (0-1); EOSINOPHILS # (AUTO) 0.11 10*3/UL; EOSINOPHILS % (AUTO) 1.7 % (0-8); Hematocrit [HCT] 30.6 % (42.0-52.0); Hemoglobin [HGB] 8.8 g/dL (14.0-18.0); LYMPHOCYTES # (AUTO) 1.04 10*3/uL; MEAN CORPUSCULAR HEMOGLOBIN 25.5 PG (27-31); MEAN CORPUSCULAR HGB CONC 28.8 g/dL (33-37); MEAN CORPUSCULAR VOLUME 88.7 FL (80-90); MEAN PLATELET VOLUME 9.3 FL (7.4-12.2); MONOCYTES # (AUTO) 0.44 10*3/UL (0.3-0.8); MONOCYTES % (AUTO) 6.9 % (5-15); NEUTROPHILS # (AUTO) 4.68 10*3/UL; NEUTROPHILS % (AUTO) 73.9 % (50-80); RED BLOOD COUNT 3.45 10^6/uL (4.70-6.10)
[2017-08-29 06:55] LABS: PLATELET MORPHOLOGY COMMENT NORMAL MORPHOLOGY (NORM); RBC MORPHOLOGY COMMENT SEE COMMENTS (NORM); WBC MORPHOLOGY COMMENT NORMAL MORPHOLOGY (NORM)
[2017-08-29] MEDS: TIOTROPIUM BROMIDE 18 MCG CAPSULE INH SCH (07:10)
[2017-08-29] MEDS: FLUTICASONE/SALMETEROL 250/50 UD INHALER INH SCH ×2 (07:10→19:05)
[2017-08-29] MEDS: FUROSEMIDE 40 MG TABLET PO SCH ×2 (07:26→13:34)
[2017-08-29] MEDS: PANTOPRAZOLE 40 MG TABLET PO SCH (07:26)
[2017-08-29] MEDS: GABAPENTIN 300 MG CAPSULE PO SCH ×4 (09:08→20:11)
[2017-08-29] MEDS: GUAIFENESIN 600 MG TABLET PO SCH ×2 (09:08→20:11)
[2017-08-29] MEDS: CHOLECALCIFEROL 1000 IU TABLET PO SCH (09:08)
[2017-08-29] MEDS: FOLIC ACID 1 MG TABLET PO SCH (09:09)
[2017-08-29] MEDS: predniSONE Tab 20 MG TAB PO SCH (09:09)
[2017-08-29] MEDS: Ropinirole Tab 0.25 MG TAB PO SCH ×3 (09:09→20:09)
[2017-08-29] MEDS: FERROUS SULFATE 325 MG TABLET PO SCH (09:09)
[2017-08-29] MEDS: POTASSIUM CHLORIDE 20 MEQ TAB PO SCH ×2 (09:10→20:10)
[2017-08-29] MEDS ORDERED: Iron Sucrose Inj 500 MG in Sodium Chloride 0.9% 250 ML IV ONE (15:03)
--- NOTE | 2017-08-29 15:03 | PDOC(PROG) ---
Date and Time of Service: 08/29/2017, 1459 Interval History: Family not available with her earlier exam. No complaint of chest pain, shortness breath, nausea or vomiting. He voices that he is worried about going back to his prior alf stay. Objective : Data - Labs CBC and BMP: 08/29/17 06:05 08/28/17 05:02 Objective : Exam - General General Appearance: No Acute Distress, Cooperative Additional General Exam Details: Vital Signs - Last Taken Temperature 97.4 F 08/29/17 13:00 Pulse Rate 67 08/29/17 13:00 Respiratory Rate 18 08/29/17 13:00 Blood Pressure 110/61 08/29/17 13:00 Pulse Ox 91 08/29/17 13:00 - Eye Eye Exam: No Scleral Icterus - ENT ENT Exam: Mucous Membranes Moist - Respiratory Respiratory Exam: Breathing Non Labored, Decreased Breath Sounds, Coarse Breath Sounds - Cardiovascular Cardiovascular Exam: RRR, No Murmur, No Clicks, No Gallops, No Rubs, No JVD - GI/Abdominal GI/Abdominal Exam: Normal Bowel Sounds, Non Tender, Non Distended, Soft - Extremities Extremities Exam: No Cyanosis Present, Calf Tenderness, +2 Edema - Neurological Neurological Exam: Alert, Oriented x 3 (Plan to person, knows he is in the hospital. Not so sure about time and situation.), No Facial Droop, Speech Intact / Clear, Moves All Extremities Equally Assessment and Plan - Patient Problems (1) End stage COPD Current Visit: Yes Status: Acute Code(s): J44.9 - Chronic obstructive pulmonary disease, unspecified (2) Chronic hypercapnic respiratory failure Current Visit: Yes Status: Chronic Code(s): J96.12 - Chronic respiratory failure with hypercapnia (3) Restless leg Current Visit: Yes Status: Chronic Code(s): G25.81 - Restless legs syndrome (4) HTN (hypertension) Current Visit: Yes Status: Chronic Code(s): I10 - Essential (primary) hypertension Qualifiers: Hypertension type: essential hypertension Qualified Code(s): I10 - Essential (primary) hypertension (5) Anemia Current Visit: Yes Status: Acute Code(s): D64.9 - Anemia, unspecified Qualifiers: Anemia type: iron deficiency Iron deficiency anemia type: chronic blood loss Qualified Code(s): D50.0 - Iron deficiency anemia secondary to blood loss (chronic) - Assessment / Plan Additional Assessment/Plan Details: Patient had upper and lower endoscopy, no source of bleeding. But hemoglobins have been consistently in the nines range. We'll check again tomorrow. Iron panel right now I think would be meaningless, but I suspect he is iron deficient and they think he would benefit from IV iron as well. I will get him a dose today. Continue breathing therapies. Check labs in a.m. and replace electrolytes as necessary. We'll discuss with family, and see what they want us to do in terms of placement. I think he still needs [facility] facility, but if they would like to change locations, I think we can assist them with that.
[2017-08-29] MEDS: traZODone Tab 50 MG TAB PO SCH (20:08)
[2017-08-29] MEDS: TAMSULOSIN 0.4 MG CAPSULE PO SCH (20:11)
[2017-08-29] MEDS: Ropinirole Tab 1 MG TAB PO SCH (20:29)
[2017-08-30 05:00] LABS: BASOPHILS # (AUTO) 0.02 10*3/UL; BASOPHILS % (AUTO) 0.3 % (0-1); EOSINOPHILS # (AUTO) 0.11 10*3/UL; EOSINOPHILS % (AUTO) 1.5 % (0-8); Hemoglobin [HGB] 8.7 g/dL (14.0-18.0); LYMPHOCYTES # (AUTO) 1.07 10*3/uL; MEAN CORPUSCULAR HEMOGLOBIN 25.2 PG (27-31); MEAN CORPUSCULAR HGB CONC 28.1 g/dL (33-37); MEAN CORPUSCULAR VOLUME 89.9 FL (80-90); MEAN PLATELET VOLUME 9.5 FL (7.4-12.2); MONOCYTES # (AUTO) 0.56 10*3/UL (0.3-0.8); MONOCYTES % (AUTO) 7.9 % (5-15); NEUTROPHILS # (AUTO) 5.27 10*3/UL; NEUTROPHILS % (AUTO) 73.9 % (50-80); RED BLOOD COUNT 3.45 10^6/uL (4.70-6.10)
[2017-08-30 05:15] LABS: BLOOD UREA NITROGEN 15 mg/dL (7-22); BUN/CREATININE RATIO 18.75 (6-20)
[2017-08-30 05:21] LABS: PLATELET MORPHOLOGY COMMENT NORMAL MORPHOLOGY (NORM); RBC MORPHOLOGY COMMENT SEE COMMENTS (NORM); WBC MORPHOLOGY COMMENT NORMAL MORPHOLOGY (NORM)
[2017-08-30] MEDS: FUROSEMIDE 40 MG TABLET PO SCH ×2 (06:37→13:31)
[2017-08-30] MEDS: PANTOPRAZOLE 40 MG TABLET PO SCH (06:44)
[2017-08-30] MEDS: ALBUTEROL SULFATE 2.5 MG/3 ML NEB PRN ×4 (07:11→19:15)
[2017-08-30] MEDS: FLUTICASONE/SALMETEROL 250/50 UD INHALER INH SCH ×2 (07:13→19:17)
[2017-08-30] MEDS: TIOTROPIUM BROMIDE 18 MCG CAPSULE INH SCH (07:13)
[2017-08-30] MEDS: CHOLECALCIFEROL 1000 IU TABLET PO SCH (08:59)
[2017-08-30] MEDS: FOLIC ACID 1 MG TABLET PO SCH (08:59)
[2017-08-30] MEDS: GABAPENTIN 300 MG CAPSULE PO SCH ×4 (08:59→20:22)
[2017-08-30] MEDS: POTASSIUM CHLORIDE 20 MEQ TAB PO SCH ×2 (08:59→20:21)
[2017-08-30] MEDS: predniSONE Tab 20 MG TAB PO SCH (09:00)
[2017-08-30] MEDS: Ropinirole Tab 0.25 MG TAB PO SCH ×2 (09:00→15:17)
[2017-08-30] MEDS: FERROUS SULFATE 325 MG TABLET PO SCH (09:00)
[2017-08-30] MEDS: GUAIFENESIN 600 MG TABLET PO SCH ×2 (09:15→20:20)
--- NOTE | 2017-08-30 10:51 | PT AM DAY ---
AM - Physical Therapy O: The patient was issued XL brown compression stockings and instructed in their propre use and care. P: No further therapy is indicated at this time. MTDD
--- NOTE | 2017-08-30 13:28 | PDOC(PROG) ---
Date and Time of Service: 08/30/2017, 1325 Interval History: Patient denied any chest pains. Stated his breathing was comfortable. Complains of foot pain which is chronic. I spoke with the patient and his family regarding going back to [facility] versus pursuing other [place] [facility] [place] placement. The family was very clear that they do not trust [facility] management at this point. They're worried that it might be best for the patient to be a new [place] facility. Objective : Data - Labs CBC and BMP: 08/30/17 04:24 08/30/17 04:24 Objective : Exam - General General Appearance: No Acute Distress, Cooperative Additional General Exam Details: Vital Signs - Last Taken Temperature 98.1 F 08/30/17 11:20 Pulse Rate 72 08/30/17 11:20 Respiratory Rate 18 08/30/17 11:20 Blood Pressure 111/65 08/30/17 11:20 Pulse Ox 92 08/30/17 11:20 4 to 4-1/2 L per nasal cannula - Eye Eye Exam: No Scleral Icterus - ENT ENT Exam: Mucous Membranes Moist - Respiratory Respiratory Exam: Decreased Breath Sounds, Coarse Breath Sounds - Cardiovascular Cardiovascular Exam: RRR, No Murmur, No Clicks, No Gallops, No Rubs, No JVD Additional Cardiovascular Details: Heart sounds are distant - GI/Abdominal GI/Abdominal Exam: Normal Bowel Sounds, Non Tender, Non Distended, Soft - Extremities Extremities Exam: No Cyanosis Present, Clubbing Present, +2 Edema - Neurological Neurological Exam: Alert, Oriented x 3, No Facial Droop, Speech Intact / Clear, Moves All Extremities Equally Assessment and Plan - Patient Problems (1) End stage COPD Current Visit: Yes Status: Acute Code(s): J44.9 - Chronic obstructive pulmonary disease, unspecified (2) Chronic hypercapnic respiratory failure Current Visit: Yes Status: Chronic Code(s): J96.12 - Chronic respiratory failure with hypercapnia (3) Restless leg Current Visit: Yes Status: Chronic Code(s): G25.81 - Restless legs syndrome (4) HTN (hypertension) Current Visit: Yes Status: Chronic Code(s): I10 - Essential (primary) hypertension Qualifiers: Hypertension type: essential hypertension Qualified Code(s): I10 - Essential (primary) hypertension (5) Anemia Current Visit: Yes Status: Acute Code(s): D64.9 - Anemia, unspecified Qualifiers: Anemia type: iron deficiency Iron deficiency anemia type: chronic blood loss Qualified Code(s): D50.0 - Iron deficiency anemia secondary to blood loss (chronic) - Assessment / Plan Additional Assessment/Plan Details: [place] [facility] [place]. Family will visit [facility] in [place] today. No change to medications for restless leg syndrome. Continue steroids at lower dose, maybe even reduced to 10 mg daily if possible. Continue breathing therapies as necessary. Oxygen as necessary. Discussed with family and case management. Referrals will be sent [facility] and we'll see what they think to the facility after the visit. It may still be [facility] but we are not sure yet.
[2017-08-30] MEDS: ACETAMINOPHEN 500 MG TABLET PO SCH (20:21)
[2017-08-30] MEDS: TAMSULOSIN 0.4 MG CAPSULE PO SCH (20:23)
[2017-08-30] MEDS: Ropinirole Tab 1 MG TAB PO SCH (20:23)
[2017-08-30] MEDS: traZODone Tab 50 MG TAB PO SCH (20:23)
[2017-08-31] MEDS: ALBUTEROL SULFATE 2.5 MG/3 ML NEB PRN (06:47)
[2017-08-31] MEDS: TIOTROPIUM BROMIDE 18 MCG CAPSULE INH SCH (06:49)
[2017-08-31] MEDS: FLUTICASONE/SALMETEROL 250/50 UD INHALER INH SCH (06:49)
[2017-08-31 06:53] VITALS: BP 131/71; TEMP 97.8; O2SAT 100
[2017-08-31] MEDS: PANTOPRAZOLE 40 MG TABLET PO SCH (07:41)
[2017-08-31] MEDS: FUROSEMIDE 40 MG TABLET PO SCH (07:41)
[2017-08-31 08:06] VITALS: RESP 20
[2017-08-31] MEDS: ACETAMINOPHEN 500 MG TABLET PO SCH (08:40)
[2017-08-31] MEDS: GUAIFENESIN 600 MG TABLET PO SCH (08:40)
[2017-08-31] MEDS: CHOLECALCIFEROL 1000 IU TABLET PO SCH (08:40)
[2017-08-31] MEDS: predniSONE Tab 20 MG TAB PO SCH (08:41)
[2017-08-31] MEDS: FERROUS SULFATE 325 MG TABLET PO SCH (08:41)
[2017-08-31] MEDS: POTASSIUM CHLORIDE 20 MEQ TAB PO SCH (08:41)
[2017-08-31] MEDS: GABAPENTIN 300 MG CAPSULE PO SCH ×2 (08:41→12:38)
[2017-08-31] MEDS: FOLIC ACID 1 MG TABLET PO SCH (08:42)
[2017-08-31] MEDS: Ropinirole Tab 0.25 MG TAB PO SCH (08:47)
--- NOTE | 2017-08-31 12:50 | DCSUMMARY ---
Hospitalization Summary Admit Date: 08/26/2017 Discharge Date: 08/31/17 Primary Diagnosis:: GI bleed, unclear source Secondary Diagnosis:: End-stage COPD Hospital Course: This very pleasant 72-year-old male who resided at [facility], and was transferred here for evaluation on 08/26/2017 with symptoms of shortness of breath and he was found to be anemic and have a GI bleed. He was admitted and an EGD and colonoscopy were done. Please see Dr. Horton's admission note for further details. See Dr. Samuel's procedure notes for further details. In short , the EGD and colonoscopy were negative. We gave the patient blood transfusions , he also got iron during the hospital stay and is on by mouth iron now. He has been consistently in the eights for his hemoglobin since admission, blood transfusion, and procedures. Patient has end-stage COPD and is been at [facility] the last couple of months. Both the patient and his family stated that they felt that the facility was not allowing him to seek further evaluation for his symptoms. The patient was actually convinced that if he did not make it on the night he was admitted that he could've . I do not know about that, but I do know that the family has expressed some significant concerns in the facility and the care that their father was receiving. The daughters went and visited several nursing homes in [place], and they feel like [facility] may help accommodate their father's needs for care. As able to obtain an accepting physician and Dr. Verdugo, I spoke with her about the patient's conditions. During the hospital stay, the patient continues to complain of restless leg syndrome which is a significant complaint of his. I do not really think this is restless leg syndrome to be honest. It's numbness and tingling and probably is more related to venous stasis and obesity then true restless leg syndrome. Iron deficiency needs to be corrected first. We think that the bleed was probably related to too much prednisone so we held off on any further prednisone and reduced to 20 mg daily. His lung disease, unfortunately, is steroid dependent at this point. Hopefully we can continue to reduce that dose. A proton pump inhibitor was also started. His blood counts stayed consistently in the eights for his hemoglobin post transfusion and workup. We will defer capsule study at this point to Dr. Works or any further evaluation in the future. I do not think he would benefit from small bowel enteroscopy. His COPD remained stable during the hospital stay, no exacerbations. He tolerated reduction of steroid to 20 mg daily without a problem. He remains on Spiriva, albuterol as necessary, and Advair. Dr. Horton did go up on the Requip to a total of 3.5 mg daily. At one time, in June of this past year, the patient was on a dose as high as 12 mg a day of Requip. He had significant mental status issues on that dose along with his Neurontin. It has been difficult to titrate both of these medications in this patient. I will note that the patient had significant tremor that is much better off of some much Requip as well. He does have anxiety disorder. He is on Klonopin for this. As his GI bleed issues became more stabilized, there was no evidence of any active bleeding, his COPD remained stable, once we were able to obtain placement in a facility that the family felt comfortable with, patient was ready for discharge. He has no complaints today of chest pain, shortness breath , nausea or vomiting. He would like one beer and evening and I think it's reasonable. His family was in agreement. Assessment and Plan: 1. As per discharge assessments noted 2. Disposition: Patient is discharged to [facility] 3. Condition on discharge, stable and improved. 4. Diet: regular diet 5. Activities: resume normal activities 6. Follow-Up: 1. Dr. Verdugo will assume primary care role for this patient. 2. 7. Medications at the Time of Discharge: Home Medications 3 Medication Instructions Recorded Confirmed Type aspirin 81 mg tablet,delayed 81 mg PO .every other day tab 05/03/17 08/26/17 History release losartan 50 mg tablet 50 mg PO QDAY 05/03/17 08/26/17 History tamsulosin 0.4 mg capsule 0.4 mg PO BEDTIME 05/03/17 08/26/17 History Albuterol Neb Soln 0.083% 2.5 mg NEB RTQ4H PRN vial.neb 06/15/17 08/26/17 Rx Calcium Carbonate [Tums] 1 - 2 tab PO Q6H PRN tab.chew 06/15/17 08/26/17 Rx Cholecalciferol [Vitamin D3] 1,000 iu PO DAILY tab 06/15/17 08/26/17 Rx Docusate Sodium [Colace] 100 mg PO BID PRN cap 06/15/17 08/26/17 Rx Flutica/Salmet 250/50 Inhaler 1 puff INH RTBID inhaler 06/15/17 08/26/17 Rx [Advair Diskus 250/50 Inhaler] Folic Acid 1 mg PO DAILY tab 06/15/17 08/26/17 Rx Furosemide [Lasix] 40 mg PO BID@0700,1300 tab 06/15/17 08/26/17 Rx Gabapentin [Neurontin] 600 mg PO QID cap 06/15/17 08/26/17 Rx Potassium Chloride [Klor-Con] 40 meq PO BID tab 06/15/17 08/26/17 Rx Tiotropium Inhalation Cap 18 mcg INH RTDAILY inhaler 06/15/17 08/26/17 Rx [Spiriva Inhalation Cap] guaiFENesin ER Tab [Mucinex ER 600 mg PO BID tab 06/15/17 08/26/17 Rx Tab] ropinirole 0.5 mg tablet 0.5 mg PO QID tab 08/02/17 08/26/17 History trazodone 50 mg tablet 50 mg PO QHS tab 08/02/17 08/26/17 History Acetaminophen [Tylenol] 1,000 mg PO BID tab 08/31/17 Rx Clonazepam 0.25 mg PO TID #30 tab 08/31/17 Rx Ferrous Sulfate [Feosol] 325 mg PO DAILY tab 08/31/17 Rx Pantoprazole Sodium [Protonix] 40 mg PO AC BK tab 08/31/17 Rx Ropinirole HCl [Requip] 0.75 mg PO BID@0900,1500 tab 08/31/17 Rx predniSONE Tab [Deltasone Tab] 20 mg PO DAILY tab 08/31/17 Rx 8. Time, care, counseling and coordination of care for this discharge is greater than 30 minutes. Exam - Vitals Vital Signs: Vital Signs Temperature 97.8 F Temperature Source Temporal Artery Scan Pulse Rate [Pulse Oximeter] 55 Pulse Rate [Apical] 59 Pulse Rate [Pulse Oximeter 68 Bilateral Radial] Pulse Rate 57 Respiratory Rate 20 Blood Pressure [Left Arm] 131/71 Blood Pressure 114/59 Pulse Ox 100 Oxygen Flow Rate 4.5 Oxygen Delivery Method Nasal Cannula Height 5 ft 7 in Weight 268 lb 14.4 oz - General General Appearance: No Acute Distress, Cooperative - Eye Eye Exam: POSITIVE: No Scleral Icterus - ENT ENT Exam: POSITIVE: Mucous Membranes Moist - Respiratory Respiratory Exam: POSITIVE: Breathing Non Labored, Decreased Breath Sounds, Coarse Breath Sounds - Cardiovascular Additional Cardiovascular Details: Distant heart sounds on examination. - GI/Abdominal GI/Abdominal Exam: POSITIVE: Normal Bowel Sounds, Non Tender, Non Distended, Soft - Extremities Extremities Exam: POSITIVE: No Cyanosis Present, Clubbing Present, +2 Edema ( This is his baseline edema, also noted with baseline venous stasis changes. No evidence of cellulitis. His skin is darker colored from venous stasis.) - Neurological Neurological Exam: POSITIVE: Alert, Oriented x 3, No Facial Droop, Speech Intact / Clear, Moves All Extremities Equally Data Peritnent Studies: 08/30/17 08/30/17 04:24 04:24 WBC 7.13 Hgb 8.7 L Hct 31.0 L Plt Count 187 Sodium 143 Potassium 4.1 Chloride 97 L Carbon Dioxide 36 H Anion Gap 10 BUN 15 Creatinine 0.8 BUN/Creatinine Ratio 18.75 Glucose 95 Calcium 8.7 Magnesium 2.2 Patient Problems - Patient Problem List (1) End stage COPD Current Visit: Yes Status: Acute Code(s): J44.9 - Chronic obstructive pulmonary disease, unspecified Category: Medical (2) Chronic hypercapnic respiratory failure Current Visit: Yes Status: Chronic Code(s): J96.12 - Chronic respiratory failure with hypercapnia Category: Medical (3) Restless leg Current Visit: Yes Status: Chronic Code(s): G25.81 - Restless legs syndrome Category: Medical (4) HTN (hypertension) Current Visit: Yes Status: Chronic Code(s): I10 - Essential (primary) hypertension Qualifiers: Hypertension type: essential hypertension Qualified Code(s): I10 - Essential (primary) hypertension Category: Medical (5) Anemia Current Visit: Yes Status: Acute Code(s): D64.9 - Anemia, unspecified Qualifiers: Anemia type: iron deficiency Iron deficiency anemia type: chronic blood loss Qualified Code(s): D50.0 - Iron deficiency anemia secondary to blood loss (chronic) Category: Medical (6) Obstructive sleep apnea Current Visit: Yes Status: Chronic Code(s): G47.33 - Obstructive sleep apnea (adult) (pediatric) Category: Medical (7) Pulmonary hypertension Current Visit: Yes Status: Chronic Onset Date: ~06/2017 Code(s): I27.20 - Pulmonary hypertension, unspecified Category: Medical (8) Bilateral primary osteoarthritis of knee Current Visit: Yes Status: Chronic Code(s): M17.0 - Bilateral primary osteoarthritis of knee Category: Medical
[2017-08-31] MEDS ORDERED: LIDOCAINE 2% 20 MG/ML - 20 ML VIAL ONE (13:43)
[2017-08-31] MEDS ORDERED: BETAMET ACET/BETAMET NA PH 6 MG/1 ML - 5 ML ONE (13:45)
--- NOTE | 2017-08-31 14:35 | PROCEDURE1 ---
Procedure - - Date and Time of Service: 08/31/2017, 1425 Procedure Note: Procedure Performed: Therapeutic Arthrocentesis, Knee, bilateral Date Procedure Performed: 08/31/2017 Indications for Procedure: 1. osteoarthritis sbilateral 2. small effusions present bilaterally Risks and Benefits: Risks described as bleeding, infection, or skin necrosis, and benefits as pain relief, the patient consented to have the knee aspiration done. Anesthesia: Local, 1% lidocaine, 5 mL Description of Procedure: Patient was prepped and draped in usual fashion. Using a lateral approach, a 1- 1/2 inch 21-gauge needle attached to a 10 mL syringe was inserted into the right knee joint, containing 5 mL of 12% lidocaine and 1 mL of 6 mg/mL of celestone. This solution was injected into the knee joint. The needle was withdrawn the area was cleansed with alcohol swabs. Hemostasis was achieved. A Band-Aid was applied. After the procedure is done, the patient reported improvement in his pain. reduced from a 10 to a 0. The procedure was done in the same fashion on the left knee using a medial approach. The patient stated his pain reduced from a 10 to a 2 on that side. Disposition: Patient to discharge today to [facility].
== END 2017-08-31 14:35 | DRG 378 ==
LOC: ER 12:32 → MED/SURG 15:48 → OPS 08-27 10:45 → MED/SURG 08-27 11:46
PROVIDERS: ADMIT Internal Medicine; ATTEND Internal Medicine